=== PATIENT | female | born 1960 | race Caucasian/White ===

== ENCOUNTER 2022-08-15 19:11 | Observation (INO) | payer OTHER ==
[~2022-08-15] VITALS: Ht 162.6 cm; Wt 56.9 kg
[~2022-08-15 19:11] MED LIST: CYCL10 PO; Percocet 5-3251 EACH PO
[2022-08-15 21:06] LABS: BASOPHILS ABSOLUTE AUTO 0.04 K/mm3 (0.00-0.23); BASOPHILS PERCENT AUTO 1 % (0-2); EOSINOPHILS ABSOLUTE AUTO 0.04 K/mm3 (0.00-0.68); EOSINOPHILS PERCENT AUTO 1 % (0-6); Hematocrit 25.2 % (33.0-51.0); Hemoglobin 8.1 g/dL (11.5-16.0); IMMATURE GRAN ABSOLUTE AUTO 0.05 K/mm3 (0.00-0.10); IMMATURE GRAN PERCENT AUTO 1 % (0-1); LYMPHOCYTES ABSOLUTE AUTO 0.77 K/mm3 (0.84-5.20); LYMPHOCYTES PERCENT AUTO 10 % (21-46); MONOCYTES ABSOLUTE AUTO 0.65 K/mm3 (0.16-1.47); MONOCYTES PERCENT AUTO 8 % (4-13); Mean Corpuscular HGB 26.6 pg (26.0-34.0); Mean Corpuscular HGB Conc 32.1 g/dL (31.5-36.5); Mean Corpuscular Volume 83 fL (80-100); NEUTROPHILS ABSOLUTE AUTO 6.15 K/mm3 (1.96-9.15); NEUTROPHILS PERCENT AUTO 80 % (41-73); Platelet Count 479 K/mm3 (150-400); RDW Coefficient Variation 16.3 % (11.7-14.2); RDW Standard Deviation 49.6 fL (35.1-46.3); Red Blood Cell Count 3.04 M/mm3 (3.80-5.20)
[2022-08-15 21:19] LABS: Bun/Creatinine Ratio 27.5 (12.0-20.0); Calcium, Blood 9.1 mg/dL (8.5-10.1); Creatinine, Blood 0.66 mg/dL (0.40-1.00); Potassium, Blood 3.3 mmol/L (3.5-5.5)
[2022-08-15 22:06] LABS: Influenza A, PCR NEGATIVE (NEGATIVE); Influenza B, PCR NEGATIVE (NEGATIVE); Resp Syncytial Virus, PCR NEGATIVE (NEGATIVE); SARS-Cov-2 (COVID-19) PCR, MMC NEGATIVE (NEGATIVE)
[2022-08-16 01:23] LABS: Glucose, Body Fluid 60 mg/dL; Lactate Dehydrogenase, Body Fl 586 U/L; Protein, Body Fluid 3.9 g/dL
[2022-08-16 01:44] LABS: Automated BF RBC Count 0.013 M/mm3 (0-0); Automated BF WBC Count 0.101 K/mm3 (0-999)
[2022-08-16 01:45] LABS: Body Fluid WBC Count 101 /mm3 (0-999); RBC Count, Body Fluid 13000 /mm3 (0-0)
[2022-08-16 03:12] LABS: Percent Saturation 8.6 % (15.0-50.0)
--- NOTE | 2022-08-16 04:06 | NUR ---
ADMISSION: PATIENT IS RECIEVED FROM ER VIA STRETCHER. REPORTING R SIDE CHEST PAIN THAT INCREASES WITH COUGHING. TORADOL IS GIVEN WITH GOOD EFFECT. PATIENT IS ORIENTED TO THE ROOM AND CALL WRIGHT.
[2022-08-16 04:11] LABS: Total Cell Count, Body Fluid 100
[2022-08-16 04:12] LABS: Appearance, Body Fluid Cloudy (Clear); Color, Body Fluid Yellow (None-Yellow)
[2022-08-16 05:14] LABS: Hematocrit 27.6 % (33.0-51.0); Hemoglobin 8.5 g/dL (11.5-16.0); Mean Corpuscular HGB 26.1 pg (26.0-34.0); Mean Corpuscular HGB Conc 30.8 g/dL (31.5-36.5); Mean Corpuscular Volume 85 fL (80-100); Mean Platelet Volume 8.3 fL (9.1-12.4); Platelet Count 511 K/mm3 (150-400); RDW Coefficient Variation 16.4 % (11.7-14.2); RDW Standard Deviation 50.6 fL (35.1-46.3); Red Blood Cell Count 3.26 M/mm3 (3.80-5.20); White Blood Cell Count 6.91 K/mm3 (4.00-11.30)
[2022-08-16 05:38] LABS: Bun/Creatinine Ratio 28.4 (12.0-20.0); Calcium, Blood 8.9 mg/dL (8.5-10.1); Creatinine, Blood 0.6 mg/dL (0.40-1.00); Potassium, Blood 3.5 mmol/L (3.5-5.5)
--- NOTE | 2022-08-16 06:00 | NUR ---
SHIFT SUMMARY: PATIENT HAS A HALF OF SANDWICH AND PUDDING FOR SNACK AND TOLERATED IT WELL. TORADOL WAS GIVEN WITH GOOD EFFECT FOR PAIN. TELI IS IN PLACE, NSR IS OBSEERVED. PATIENT IS UP TO TH BATHROOM WITH A STEADY GAIT. PATIENT IS TEARFULL AND TIMES.
[2022-08-16 07:18] LABS: Total Protein, Blood 6.7 g/dL (6.4-8.2)
--- NOTE | 2022-08-16 14:28 | NUR ---
DR. BRADSHAW CONTACTED PT REQUESTING DR. BRADSHAW TO GO OVER CT SCAN RESULTS W/ HER. PLANS TO COME SEE PT THIS AFTERNOON.
--- NOTE | 2022-08-16 18:22 | NUR ---
SHIFT SUMMARY PT A&OX4, MOOD UP AND DOWN T/O SHIFT SINCE NEWS OF NEW SUSPECTED CANCER DX. PT STATES SHE IS "SCARED TO ." DR. BRADSHAW INTO SEE PT TO REVIEW IMAGES W/ PT THIS SHIFT. PT TOLERATING PO INTAKE WELL. CALL LIGHT W/IN REACH. PAIN MEDICATED PER EMAR. VSS. RA. PLAN FOR PAL CARE CONSULT. TELE IN PLACE.
--- NOTE | 2022-08-17 06:49 | NUR ---
SHIFT SUMMARY: PATIENT HAS PERIODS OF ANXIETY WHICH SEEMS TO INCREASE PAIN. PATIENT WAS OFFERED TYLENOL OR DILAUDID FOR PAIN AND REFUSED BOTH. "I DON'T LIKE TO TAKE A LOT OF MEDICATIONS". HEAT THERAPY WAS UTILIZED WITH GOOD EFFECT. THE PATIENT WAS ALSO ASSISTED WITH A SPONGE BATH AND AMBULATED IN THE DE SOUZA WITH A STEADY GAIT. AFTER BATH, SLEEP AND WALK PATIENT REPORTED FEELING MUCH BETTER.
[2022-08-17] MEDS ORDERED: Acetaminophen325 M1 PO (15:18)
[2022-08-17] MEDS ORDERED: AZIT500 PO (15:19)
[2022-08-17] MEDS ORDERED: CEFP200 PO (15:19)
[2022-08-17] MEDS ORDERED: IBUP400 PO (15:19)
[2022-08-17] MEDS ORDERED: VISBIOME 112.51 EACH PO (15:20)
[2022-08-17] MEDS ORDERED: ONDA4ODT MM (15:20)
[2022-08-17] MEDS ORDERED: LIDO700A20 TOP (15:21)
--- NOTE | 2022-08-17 17:24 | NUR ---
DISCHARGE SUMMARY: 1600: LATE ENTRY: PATIENT REPORTED CHEST WALL PAIN, ESPECIALLY WITH PENDING COUGH. PATIENT DISPLAYED SOME SHORTNESS OF BREATH AT REST AND WITH ACTIVITY. PATIENT DENIED NEED FOR OXYGEN OR SUPPORT MEASURES. PATIENT CONTINUES TO COUGH UP MODERATE AMOUNTS OF CLEAR, THICK SPUTUM. PATIENT STEADY ON HER FEET. PATIENT CALM AND COOPERATIVE. PATIENT VERY APPRECIATIVE OF CARE. PATIENT REPORTS PLANS TO FOLLOW THROUGH WITH RECOMMENDED APPOINTMENTS AND ACTIONS. DISCHARGE RX FAXED TO [facility] PER PATIENT REQUEST. DISCHARGE INSTRUCTIONS AND EDUCATION PROVIDED TO PATIENT. ALL QUESTIONS AND CONCERNS ADDRESSED. PATIENT DISCHARGED IN WHEELCHAIR WITH SUPERVISING ARCHITECT. PATIENT STABLE AT TIME OF DISCHARGE.
== END 2022-08-17 16:47 | disposition home or self-care (01) ==
LOC: ER 19:11 → MEDS 19:12
PROVIDERS: Family Medicine; Student in an Organized Health Care Education/Training Program; ADMIT Internal Medicine
DX: J90 Pleural effusion, not elsewhere classified (principal); J96.01 Acute respiratory failure with hypoxia; D63.1 Anemia in chronic kidney disease; E87.6 Hypokalemia; Z85.3 Personal history of malignant neoplasm of breast; C79.9 Secondary malignant neoplasm of unspecified site; C34.90 Malignant neoplasm of unspecified part of unspecified bronchus or lung
CPT/HCPCS: 0241U; 32555; 36415; 71046; 71250; 74177; 80048; 82728; 82945; 83540; 83550; 83615; 84145; 84155; 84157; 85025; 85027; 87070; 87205; 88108; 88305; 88341; 88342; 89051; 96365-59; 96375-59; 96376; 99285-25; A9270; G0378; J0696; J1885; J7050; Q9967

== ENCOUNTER 2022-08-18 09:14 | Inpatient (IN) | payer OTHER ==
[~2022-08-18] VITALS: Ht 162.6 cm; Wt 60.2 kg
[~2022-08-18 09:14] MED LIST changes: +AZIT500 PO; +Acetaminophen325 M1 PO; +CEFP200 PO; +IBUP400 PO; +LIDO700A20 TOP; +ONDA4ODT MM; +VISBIOME 112.51 EACH PO
[2022-08-18 10:12] LABS: Hematocrit 32.5 % (33.0-51.0); Hemoglobin 9.8 g/dL (11.5-16.0); Mean Corpuscular HGB 25.5 pg (26.0-34.0); Mean Corpuscular HGB Conc 30.2 g/dL (31.5-36.5); Mean Corpuscular Volume 85 fL (80-100); Mean Platelet Volume 8.3 fL (9.1-12.4); Platelet Count 624 K/mm3 (150-400); RDW Coefficient Variation 16.3 % (11.7-14.2); RDW Standard Deviation 50.4 fL (35.1-46.3); Red Blood Cell Count 3.84 M/mm3 (3.80-5.20); White Blood Cell Count 3.84 K/mm3 (4.00-11.30)
[2022-08-18 10:41] LABS: Albumin, Blood 3.3 g/dL (3.4-5.0); Albumin/Globulin Ratio 0.8 (0.8-1.8); Bilirubin, Total 0.6 mg/dL (0.1-1.0); Bun/Creatinine Ratio 30.8 (12.0-20.0); Creatinine, Blood 0.62 mg/dL (0.40-1.00); Globulin, Blood 3.9 g/dL (2.2-4.0); Potassium, Blood 3.5 mmol/L (3.5-5.5); Total Protein, Blood 7.2 g/dL (6.4-8.2)
[2022-08-18 10:43] LABS: BAND PERCENT MAN 44 % (0-8); BASOPHILS PERCENT MAN 0 % (0-2); EOSINOPHILS PERCENT MAN 0 % (0-6); LYMPHOCYTES ABSOLUTE MAN 0.11 K/mm3 (0.84-5.20); LYMPHOCYTES PERCENT MAN 3 % (21-46); METAMYELOCYTE ABSOLUTE MAN 0.03 K/mm3 (0.00-0.00); METAMYELOCYTE PERCENT MAN 1 % (0-0); MONOCYTES ABSOLUTE MAN 0.15 K/mm3 (0.16-1.47); MONOCYTES PERCENT MAN 4 % (4-13); NEUTROPHILS ABSOLUTE MAN 3.53 K/mm3 (1.96-9.15); SEG NEUTROPHILS PERCENT MAN 48 % (41-73); TOTAL CELLS COUNTED 100
[2022-08-18 12:46] LABS: Source, Urine Clean Catch
[2022-08-18 13:01] LABS: Appearance, Urine Clear (Clear); Bilirubin, Urine Neg (Neg); Blood, Urine Neg (Neg); Color, Urine Yellow (P-Yellow); Glucose Qualitative, Urine Neg (Neg); Ketones, Urine Neg (Neg); Leukocyte Esterase, Urine 1+ (Neg); Nitrite, Urine Neg (Neg); Protein, Urine 2+ (Neg); Specific Gravity, Urine 1.015 (1.003-1.022); Urobilinogen, Urine NORM (Normal)
[2022-08-18 13:20] LABS: Bacteria Rare /hpf; Mucus Mod (0-Heavy); Renal Epithelial Rare /hpf (0-Rare); Squamous Epithelial Cells Mod /hpf (Few)
--- NOTE | 2022-08-18 13:30 | NUR ---
ED Palliative Care Consult Spoke with Dr Espana and Hospitalist Ivan. Discussed case and concerns. Pt to the ED with possible perforation of bowel or stomach. Pt also has metastatic cancer. Pt may benefit from goals of care discussion. Pt resting on gurney upon arrival. Pt in significant pain and ED RN Jeannie offers IV pain medication. Pt reports medication is beneficial. Pt A&OX4. Engaged in therapeutic discussion regarding goals of care. Pt reports living out [facility] with no family local. Pt reports her dad moved to live with her sister out of state. Pt reports being unemployed since COVID 19 pandemic. 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 Discussed potential options for care including surgery or considering comfort care and hospice. Pt reports being scheduled at the [facility] today before this incident but was unable to make it. She reports having received chemo therapy in the past and was finished with treatment. She reports being unsure if she wants to pursue treatment for her cancer as of yet. She reports feeling overwhelmed and needs time to consider her goals. Pt expresses appreciation and reports no other concerns at this time. Spoke with ED RN Nichelle Phelps and discussed case. Palliative Care will remain available for therapeutic and supportive visits.
--- NOTE | 2022-08-18 14:27 | NUR ---
History, Chart, Medications and Allergies reviewed before start of procedure.Pre-Op teaching done. Pt verbalizes understanding. Pre-Op teaching done. Pt verbalizes understanding.
--- NOTE | 2022-08-18 16:49 | NUR ---
08/18/22 1649 Chun Tai 3.375 ZOSYN GIVEN BY ANESTHESIA AT 1604
--- NOTE | 2022-08-18 19:00 | NUR ---
ASSUMED CARE/ARRIVAL TO ICU PT ARRIVED FROM OR. PT A/O X 4. LUNGS SOUNDS DIM IN BASES. REPORTS ITS PAINFUL TO COUGH AND DEEP BREATHING. ON 5L NC W/ SATS GREATER THAN 92%. SINUS TACH 110'S. HYPOACTIVE BT. ABD TENDER, REPORTS 9/10 PAIN. KASSANDRA DRAIN W/ SMALL AMOUNTS OF DRAINAGE ON DRSG. RIMMA DRAIN TO L ABD. SEROSANGUINEOUS DRAINAGE. RECINOS IN PLACE, DRAINING TO GRAVITY.
--- NOTE | 2022-08-18 20:50 | NUR ---
UNCONTROLLED PAIN PATIENT C/O CONSISTENT WIDESPREAD PAIN NOT RELEIVED BY FENTANYL 50MCG Q1H. CALL MADE TO DR. CANO AND ORDERS RECEIVED FOR DILAUDID 1-2MG IV Q6H PRN. DILAUDID 2MG IV GIVEN TO PATIENT WITH PATIENT REPORTING DECREASE IN PAIN.
[2022-08-19 02:01] LABS: Source, Urine Foley catheter
[2022-08-19 02:25] LABS: Bilirubin, Urine Neg (Neg); Blood, Urine 4+ (Neg); Glucose Qualitative, Urine Neg (Neg); Ketones, Urine 1+ (Neg); Leukocyte Esterase, Urine 1+ (Neg); Nitrite, Urine Neg (Neg); Protein, Urine 2+ (Neg); Urobilinogen, Urine NORM (Normal)
[2022-08-19 02:27] LABS: Appearance, Urine Clear (Clear); Color, Urine Yellow (P-Yellow)
[2022-08-19 02:28] LABS: Bacteria Rare /hpf; Squamous Epithelial Cells Not Seen /hpf (Few); Uric Acid Crystals Mod /hpf
[2022-08-19 03:43] LABS: Hematocrit 25.8 % (33.0-51.0); Mean Corpuscular HGB 26.4 pg (26.0-34.0); Mean Corpuscular Volume 85 fL (80-100); Mean Platelet Volume 8.1 fL (9.1-12.4); Platelet Count 433 K/mm3 (150-400); RDW Coefficient Variation 16.9 % (11.7-14.2); RDW Standard Deviation 52.7 fL (35.1-46.3); Red Blood Cell Count 3.03 M/mm3 (3.80-5.20); White Blood Cell Count 10.75 K/mm3 (4.00-11.30)
[2022-08-19 04:03] LABS: Albumin, Blood 2.3 g/dL (3.4-5.0); Albumin/Globulin Ratio 0.7 (0.8-1.8); Bilirubin, Total 0.4 mg/dL (0.1-1.0); Bun/Creatinine Ratio 26.4 (12.0-20.0); Calcium, Blood 8.2 mg/dL (8.5-10.1); Creatinine, Blood 0.72 mg/dL (0.40-1.00); Globulin, Blood 3.2 g/dL (2.2-4.0); Magnesium, Blood 1.9 mg/dL (1.6-2.4); Potassium, Blood 4.3 mmol/L (3.5-5.5); Total Protein, Blood 5.5 g/dL (6.4-8.2)
[2022-08-19 04:04] LABS: BAND PERCENT MAN 26 % (0-8); BASOPHILS PERCENT MAN 0 % (0-2); EOSINOPHILS PERCENT MAN 0 % (0-6); LYMPHOCYTES ABSOLUTE MAN 0.32 K/mm3 (0.84-5.20); LYMPHOCYTES PERCENT MAN 3 % (21-46); METAMYELOCYTE ABSOLUTE MAN 0.21 K/mm3 (0.00-0.00); METAMYELOCYTE PERCENT MAN 2 % (0-0); MONOCYTES ABSOLUTE MAN 0.75 K/mm3 (0.16-1.47); MONOCYTES PERCENT MAN 7 % (4-13); NEUTROPHILS ABSOLUTE MAN 9.46 K/mm3 (1.96-9.15); SEG NEUTROPHILS PERCENT MAN 62 % (41-73); TOTAL CELLS COUNTED 100
--- NOTE | 2022-08-19 05:52 | NUR ---
SHIFT SUMMARY PT REQUIRED FREQUENT PAIN MEDICATION. REPORTS GOOD PAIN CONTROL W/ ADDED DILAUDID. SEE EMAR. LR INFUSING. VSS. RIMMA DRAIN, AND KASSANDRA DRAIN TO ABD W/ NO INCREASED BLEEDING. RECINOS PATENT AND DRAINING TO GRAVITY. PG PLACED THIS SHIFT TO BHUMI.
--- NOTE | 2022-08-19 08:55 | NUR ---
Assumed care of pt at 0700. Report recevied from Caren CERVANTES and Gabriela RN. Pt alert. Reports pain and requests medication. Dilaudid given. Pt able to assist with reposition. Pt on 3 LPM NC. SpO2 90% or greater. SR per monitor. BP stable. Dr Triplett in to see patient. Provider states pt is okay for surgical floor status.
--- NOTE | 2022-08-19 16:16 | NUR ---
Pt resting in bed and reporting 8/10 pain. Offered supportive visit and validated concerns. Pt anxious and painful having difficulty focusing on conversation. Ended visit to allow Pt to rest. Reported Pt's pain to covering RN. Spoke with Dr Triplett and discussed case. Plan to start Pt on MACHINED PARTS METAL SPRAYER pump. Palliative Care will remain available for supportive visits and symptom management.
--- NOTE | 2022-08-19 16:52 | NUR ---
SUMMARY Pt is surgical floor status with telemetry Neuro: A&O x 4. Answers questions, follows commands, verbalizes needs. Pleasant and cooperative with care. Difficulty with pain control. Pt started on fentanyl AMUSEMENT PARK ENTERTAINER pump. Musculoskeletal: Pt able to help with repositioning. Weak, but able to perform ADLs independently while in bed. Cardiac: SR - ST per monitor, rate 95-105. BP stable. No edema. Capillary refill <3 seconds BUE and BLE. Respiratory: SpO2 90% or greater with 2 LPM NC. Clear lung sounds YAIR, all other lobes diminished. Pt self-suctioning sputum. Pt educated on flutter valve and incentive spirometer. Pt consistenly uses these items correctly and independently. GI: NGT to LIS with drainage in tubing but not in suction canister. Normal BT. : Renee catheter in place, draining solitario urine Skin: Unchanged from initial assessment. 70 mL output this shift from RIMMA. Psychosocial: Pt updating family and friends. Pleasant and cooperative with care.
--- NOTE | 2022-08-19 17:20 | NUR ---
Transferred to room 217 accompanied by MARGARITO Shah. Chart, medications, belongings transferred with patient. Care transferred to Gale CERVANTES.
--- NOTE | 2022-08-20 04:27 | NUR ---
SHIFT SUMMARY POD 2. AOX4. VSS. OCCASIONALLY SPO2 DROPS BRIEFLY TO 88-89% ON 2L O2, HOWEVER PT RECOVERS QUICKLY TO 92-94% ON 2L. REPORTS DYSPNEA, DOESNT WEAR O2 AT BASELINE. BREATH SOUNDS DIM IN BASES. PT VERY ANXIOUS ABOUT BREATHING & OVERALL HEALTH CONDITION, DENIES NEED FOR MEDICATION TO ASSIST c ANXIETY. USED THERAPEUTIC LISTENING & MUSIC THERAPY. REPORTS CONSTANT 8-9/10 ALLOVER ABD PAIN, FACILITY MAINTENANCE MECHANIC PUMP IN USE & PT USING PRN, ALSO MEDICATED 2X c 0.5MG IV DILAUDID FOR BREAKTHROUGH PAIN. MIDLINE ABD PICCO DRESSING C/D/I. ABD TENDER TO PALPATION, DENIES N/V. NPO. NG TUBE R NARES, SM AMOUNT GREEN/BROWN DRAINAGE c SOME DARK BROWN/RED SEDIMENT SEEN IN TUBE-CHAARGE HELEN Higgins IRRIGATED NG TUBE & APPEARS TO BE FLOWING MORE FREELY NOW. RIMMA DRAIN TO LLQ ABD, 40ML SEROSANGUINOUS DRAINAGE TOTAL THIS SHIFT. RECINOS PATENT & DRAINING YELLOW URINE c SM AMOUNT SEDIMENT. CALL LIGHT IN REACH. WILL MONITOR UNTIL DAY NURSE ASSUMES CARE.
--- NOTE | 2022-08-20 17:12 | NUR ---
SHIFT SUMMARY POD2 EX LAP c HERMINIA PATCH, A/O X4, VSS, PT IS MODERATELY ANXIOUS R/T CURRENT CONDITION AND IS ABLE TO DO FOCUSED BREATHING TO HELP CALM HERSELF. DIE TRIMMER ADJUSTED WITH MODERATE IMPROVEMENT TO PAIN MANAGEMENT, PT REMAINS NPO T/O THE SHIFT. CALL LIGHT IN REACH, WILL CTM AND REPORT TO ONCOMING NOC RN.
--- NOTE | 2022-08-21 06:10 | NUR ---
SHIFT SUMMARY NO ACUTE CHANGES THIS SHIFT. AOX4. VSS. REPORTS OCC DYSPNEA, SPO2 >90% ON 2L O2. LESS ANXIOUS THEN PREVIOUS NIGHT. STATES PAIN IS GETTING BETER, HAS CONTINUOUS FENTANYL DIGITAL COMPUTER OPERATOR ALONG c BOLUS & MEDICATED 2X c IV TORADOL. MIDLINE ABD PICCO DRESSING C/D/I. LLQ RIMMA DRAIN HAD 160ML SEROUS OUTPUT. NG TUBE HAD 150ML TOTAL IN CANISTER. CALL LIGHT IN REACH & PT ABLE TO MAKE NEEDS KNOWN. WILL MONITOR.
--- NOTE | 2022-08-21 19:22 | NUR ---
SHIFT SUMMARY POD3 EX LAP c HERMINIA PATCH, A/OX4, VSS, TOLERATING CLEARS AFTER NG TUBE REMOVED AT 1400, RIMMA DRAIN CONTINUES TO DRAIN SMALL AMT OF MOSTLY SEROUS FLUID, PAIN MANAGED BY PARIMUTUEL TICKET CHECKER, DOES WELL WITH STAND/PIVOT TRANSFERS TO BSC AND . NO ACUTE EVENTS THIS SHIFT, CALL LIGHT IN REACH, REPORT GIVEN TO KATHLEEN CERVANTES.
--- NOTE | 2022-08-22 07:38 | NUR ---
SHIFT SUMMARY AOX4. VSS. REPORTS CONSTANT PAIN T/O ABD, BEING MEDICATED VIA RV SERVICE TECHNICIAN PUMP & c PRN TORADOL. RIMMA c MOD AMOUNT YELLOW SEROUS DRAINAGE. CHANGED TO CLEAR LIQUID DIET, TOLERATING W/O N/V. HAD 2 BM THIS SHIFT, REPORTS BELCHING. ACTIVE BT. PT CONCERNED THIS AM ABOUT "SWELLING IN ANKLES" +1 EDEMA, STATES THIS IS NEW FOR HER, PASSED INFO TO ONCOMING NURSE. PT ANXIOUS & HAVING TROUBLE COPING c DX STATES "I'M NOT A SICK PERSON, I WAS CANCER FREE IN MARCH, MY BODY HAS FAILED ME.". CALL LIGHT IN REACH & PT ABLE TO MAKE NEEDS KNOWN.
[2022-08-22 11:52] LABS: BASOPHILS ABSOLUTE AUTO 0.04 K/mm3 (0.00-0.23); BASOPHILS PERCENT AUTO 1 % (0-2); EOSINOPHILS ABSOLUTE AUTO 0.14 K/mm3 (0.00-0.68); EOSINOPHILS PERCENT AUTO 2 % (0-6); Hematocrit 25.8 % (33.0-51.0); Hemoglobin 8.2 g/dL (11.5-16.0); IMMATURE GRAN PERCENT AUTO 1 % (0-1); LYMPHOCYTES ABSOLUTE AUTO 0.67 K/mm3 (0.84-5.20); LYMPHOCYTES PERCENT AUTO 9 % (21-46); MONOCYTES ABSOLUTE AUTO 0.61 K/mm3 (0.16-1.47); MONOCYTES PERCENT AUTO 8 % (4-13); Mean Corpuscular HGB 26.4 pg (26.0-34.0); Mean Corpuscular HGB Conc 31.8 g/dL (31.5-36.5); Mean Corpuscular Volume 83 fL (80-100); Mean Platelet Volume 8.3 fL (9.1-12.4); NEUTROPHILS ABSOLUTE AUTO 6.33 K/mm3 (1.96-9.15); NEUTROPHILS PERCENT AUTO 80 % (41-73); Platelet Count 516 K/mm3 (150-400); RDW Coefficient Variation 16.6 % (11.7-14.2); RDW Standard Deviation 50.6 fL (35.1-46.3); Red Blood Cell Count 3.11 M/mm3 (3.80-5.20); White Blood Cell Count 7.89 K/mm3 (4.00-11.30)
[2022-08-22 12:14] LABS: Albumin, Blood 2.1 g/dL (3.4-5.0); Albumin/Globulin Ratio 0.6 (0.8-1.8); Bilirubin, Total 0.4 mg/dL (0.1-1.0); Bun/Creatinine Ratio 31.5 (12.0-20.0); Calcium, Blood 8.4 mg/dL (8.5-10.1); Creatinine, Blood 0.51 mg/dL (0.40-1.00); Globulin, Blood 3.6 g/dL (2.2-4.0); Potassium, Blood 3.1 mmol/L (3.5-5.5); Total Protein, Blood 5.7 g/dL (6.4-8.2)
--- NOTE | 2022-08-22 19:53 | NUR ---
SHIFT SUMMARY PAIN CONTINUES TO BE MANAGED WITH FENTANYL APPRENTICE PHOTOGRAPHER AND TORADOL. PT HAS BEEN INDEPENDENT TO THE BSC T/O THE SHIFT. DR. OSMAN AND DR. FRANK NOTIFIED OF THE INTENSIVISTS RECOMMENDATION FOR A CHEST TUBE. DR. FRANK STATED SHE WOULD DISCUSS PLACEMENT WITH RADIOLOGY TOMORROW AFTER DR. MALONE SEES THE PT, PER DR. FRANK PLACEMENT IS NON-URGENT. PT REPORT FEELING SOB BUT O2 SATURATIONS REMAIN >95% ON 1L O2. REPORT GIVEN TO KATHLEEN CERVANTES.
[2022-08-23 04:59] LABS: BASOPHILS ABSOLUTE AUTO 0.03 K/mm3 (0.00-0.23); BASOPHILS PERCENT AUTO 0 % (0-2); EOSINOPHILS ABSOLUTE AUTO 0.19 K/mm3 (0.00-0.68); EOSINOPHILS PERCENT AUTO 3 % (0-6); Hematocrit 28.8 % (33.0-51.0); Hemoglobin 8.6 g/dL (11.5-16.0); IMMATURE GRAN ABSOLUTE AUTO 0.17 K/mm3 (0.00-0.10); IMMATURE GRAN PERCENT AUTO 2 % (0-1); LYMPHOCYTES ABSOLUTE AUTO 0.76 K/mm3 (0.84-5.20); LYMPHOCYTES PERCENT AUTO 10 % (21-46); MONOCYTES ABSOLUTE AUTO 0.69 K/mm3 (0.16-1.47); MONOCYTES PERCENT AUTO 9 % (4-13); Mean Corpuscular HGB 24.8 pg (26.0-34.0); Mean Corpuscular HGB Conc 29.9 g/dL (31.5-36.5); Mean Corpuscular Volume 83 fL (80-100); Mean Platelet Volume 8.5 fL (9.1-12.4); NEUTROPHILS ABSOLUTE AUTO 5.48 K/mm3 (1.96-9.15); NEUTROPHILS PERCENT AUTO 75 % (41-73); Platelet Count 519 K/mm3 (150-400); RDW Coefficient Variation 16.6 % (11.7-14.2); RDW Standard Deviation 50.4 fL (35.1-46.3); Red Blood Cell Count 3.47 M/mm3 (3.80-5.20); White Blood Cell Count 7.32 K/mm3 (4.00-11.30)
[2022-08-23 05:15] LABS: Albumin, Blood 2.1 g/dL (3.4-5.0); Anion Gap 6 mmol/L (6-16); Blood Urea Nitrogen 13 mg/dL (8-24); Bun/Creatinine Ratio 23.3 (12.0-20.0); CO2, Blood 32 mmol/L (21-32); Calcium, Blood 8.6 mg/dL (8.5-10.1); Chloride, Blood 104 mmol/L (98-108); Creatinine, Blood 0.56 mg/dL (0.40-1.00); Glomerular Filtration Rate 105 (60-); Glucose, Blood 116 mg/dL (70-99); Magnesium, Blood 2.1 mg/dL (1.6-2.4); Potassium, Blood 3.5 mmol/L (3.5-5.5); Sodium, Blood 142 mmol/L (136-145)
--- NOTE | 2022-08-23 07:42 | NUR ---
POD 5 S/P EX LAP+HERMINIA PATCH. PT VSS T/O NIGHT. SATS >90% ON RA, PT IS WEARING 1LO2 NC FOR COMFORT. PT REP SHE FEELS MORE SOB THIS AM. PT HAS WEAK NON PROD COUGH. SEAL AND SX INTACT ON KASSANDRA DRESSING. PT DENIED N/V, REP +FLATUS. PAIN MGD W/CRADLE SLIDE MAKER AND TORADOL. PT UP INDEP TO BSC. AWAITING ONCOLOGY CONSULT AND POSS CT PLACEMENT.
[2022-08-23 12:32] LABS: Performing Lab SYMBIODX; Test Name HER2 FISH
--- NOTE | 2022-08-23 14:21 | NUR ---
Spiritual Care Visit Dr. Mendenhall Received request from an oncology physician to visit Pt. Pt. had just made the decision to do Chemo therapy. Pt. is quietly unsettled because her family support base is occupied caring for other family groing through trauma. Pt. verbalized that she had a visit from someone form her [facility] in [place]. Pt. displayed increasing trust and became cathartic as she shared her family story. With a calm presence and theraputic listening Pt. welcomed pastoral prayer. Prayed with Pt. Pt. verbalized gratitude for the spiritual care visit. Before this ammonium nitrate crystallizer left, a came to clarify Pts. choices.
--- NOTE | 2022-08-23 14:35 | NUR ---
Spoke with RN Nichelle Wesley and discussed case earlier today. Pt resting in bed upon arrival. Offered supportive visit as Pt reports making a decision regarding treatment choices. She reports plan to start treatment in the hospital. Continued active listening. Encourage Pt to consider establiching a support system as this may be beneficial as she goes through treatment. Continued supportive visit. Pt expresses appreciation and reports no other concerns at this time. Palliative Care will remain available.
--- NOTE | 2022-08-23 14:40 | NUR ---
PT REPORTS THAT SHE HAS MADE A DECISION REGARDING TREATMENT. SHE ALSO STATES THAT SHE CALLED DR. TALLEY TO NOTIFY HIM OF HER DECISION. DR. TALLEY'S OFFICE CONTACTED TO CLARIFY THAT PT'S MESSAGE HAD BEEN RECEIVED, OFFICE STAFF CONFIRMED.
--- NOTE | 2022-08-23 14:42 | NUR ---
PT HAS HAD MULTIPLE VISITORS TODAY. THE ELDER'S FROM HER [place] VISITED. PT WAS ALSO SEEN BY HOSPITAL PASTORAL CARE AND PALLIATIVE CARE FOR SUPPORT. WILL CONTINUE TO MONITOR.
--- NOTE | 2022-08-23 17:11 | NUR ---
SHIFT SUMMARY PT HAS BEEN INDEPENDENT IN HER ROOM TODAY. SHE HAS TRANSITIONED FROM COMBINATION WELDER APPRENTICE TO ORAL PAIN MEDICATION. DR. TALLEY ROUNDED ON PT AND DISCUSSED CA TREATMENT OPTIONS. PLAN FOR CHEMO TREATMENT TO START TOMORROW. PT ADVANCED TO A REGULAR DIET. WILL MONITOR UNTIL REPORT TO KATHLEEN CERVANTES.
[2022-08-24 04:29] LABS: BASOPHILS ABSOLUTE AUTO 0.04 K/mm3 (0.00-0.23); BASOPHILS PERCENT AUTO 1 % (0-2); EOSINOPHILS ABSOLUTE AUTO 0.15 K/mm3 (0.00-0.68); EOSINOPHILS PERCENT AUTO 2 % (0-6); Hematocrit 24.8 % (33.0-51.0); Hemoglobin 7.6 g/dL (11.5-16.0); IMMATURE GRAN ABSOLUTE AUTO 0.15 K/mm3 (0.00-0.10); IMMATURE GRAN PERCENT AUTO 2 % (0-1); LYMPHOCYTES ABSOLUTE AUTO 0.82 K/mm3 (0.84-5.20); LYMPHOCYTES PERCENT AUTO 12 % (21-46); MONOCYTES ABSOLUTE AUTO 0.59 K/mm3 (0.16-1.47); MONOCYTES PERCENT AUTO 9 % (4-13); Mean Corpuscular HGB 25.2 pg (26.0-34.0); Mean Corpuscular HGB Conc 30.6 g/dL (31.5-36.5); Mean Corpuscular Volume 82 fL (80-100); Mean Platelet Volume 8.4 fL (9.1-12.4); NEUTROPHILS ABSOLUTE AUTO 5.22 K/mm3 (1.96-9.15); NEUTROPHILS PERCENT AUTO 75 % (41-73); Platelet Count 459 K/mm3 (150-400); RDW Coefficient Variation 16.8 % (11.7-14.2); RDW Standard Deviation 50.4 fL (35.1-46.3); Red Blood Cell Count 3.02 M/mm3 (3.80-5.20); White Blood Cell Count 6.97 K/mm3 (4.00-11.30)
[2022-08-24 04:45] LABS: Anion Gap 8 mmol/L (6-16); Blood Urea Nitrogen 12 mg/dL (8-24); CO2, Blood 32 mmol/L (21-32); Calcium, Blood 8.2 mg/dL (8.5-10.1); Chloride, Blood 100 mmol/L (98-108); Glomerular Filtration Rate 103 (60-); Glucose, Blood 114 mg/dL (70-99); Phosphorus, Blood 3.2 mg/dL (2.5-4.9); Potassium, Blood 3.4 mmol/L (3.5-5.5); Sodium, Blood 140 mmol/L (136-145)
--- NOTE | 2022-08-24 05:34 | NUR ---
SHIFT SUMMARY PATIENT ALERT AND ORIENTED. SHE IS VERY TIMID AND SOFT SPOKEN. MEDICATED PER EMAR FOR PAIN. SHE HAS TROUBLE ARTICULATING AND PROCESSING HOW SHE IS PHYSICALLY FEELING. NO ACUTE ISSUES NOTED OVERNIGHT. CALL LIGHT WITHIN REACH. REPORT GIVEN TO ONCOMING RN.
--- NOTE | 2022-08-24 11:22 | NUR ---
RN NOTE MS WHITMORE IS GETTING HER 1ST DOSE OF TAXOL TODAY, PRE MEDS GIVEN. SHE SAID THAT SHE IS READY TO START CHEMO. SHE IS GENERALLY SAD/ANXIOUS, ABLE TO VERBALISE HER FEELINGS. SHE SPOKE TO THE TIBURCIO YESTERDAY AND SAID THAT WAS HELPFUL AND THERAPY DOG VISITED HER THIS MORNING. ABDOMEN WITH ORIGINAL SURGICAL DRESSING IN PLACE. KASSANDRA WITH FLASHING GREEN LIGHT, RIMMA DRAIN WITH S/S DRAINAGE, 70CC EMPTIED THIS AM. NON PITTING EDEMA BLE. UP FREQUENTLY TO BSC FOR LIQUID STOOLS AND URINATION. STEADY INDEPENDENT TRANSFER. SR ON TELE, NO CALLS FROM TT. BED LOW, CALL LIGHT IN REACH.
--- NOTE | 2022-08-24 12:03 | NUR ---
CHEMO ADMINISTRATION: PATIENT EDUCATION PROVIDED ON MEDICATION TO BE ADMINISTERED. PATIENT DENIES QUESTIONS AT THIS TIME, DR. TALLEY EXPLAINED AND ANSWERED QUESTIONS TO PATIENT SATISFACTION. PICC LINE TO RUE PATENT AND INFUSING WITHOUT DIFFICULTY. TAXOL STARTED PER RX WITH CHEMO PRECAUTIONS USED. PATIENT EDUCATED TO CALL FOR ANY ABNORMAL SYMPTOMS. PREMEDICATION HAS BEEN ADMINISTERED. MAX RN VERIFIED CHEMO MEDICATION, DOSAGE, ADMINISTRATION, AND RATE. BEDSIDE RN, RHONDA NOTIFIED OF SYMPTOMS TO WATCH FOR. IV LINE LABELED WITH CHEMO STICKER AND HUB TAPED FOR SECURITY.
--- NOTE | 2022-08-24 12:26 | NUR ---
Spiritual Care Visit. Pt. is awake in bed and welcomes my visit. Pt. is pleasant. Rapport is re-established. Pt. displays evidence of engagement and trust. Facilitate a life review and uncover spiritual distress related family unit complications and past personal trauma. With a calming presence and theraputic listening Pt. diplays evidence of increased value and peace. 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 When lunch was served I prayed with the Pt. Pt. verbalized and expressed non-verbally her gratitude for the spiritual care that she has received, and welcomes a return visit.
--- NOTE | 2022-08-24 17:23 | NUR ---
SHIFT CATRACHO SEE PRIOR RN NOTE PT TOLERATED 1ST DOSE OF CHEMO TODAY. HAS BEEN UP MULTIPLE TIMES UP TO BSC FOR LOOSE LIQUID STOOL. SMALL VOLUMES BUT FREQUENT. C/O ABDOMINAL PAIN, GIVEN TORODOL AND NORCO TO CONTROL PAIN. SHE SAID HER BREATHING HAS BEEN FEELING OK ON 2L NC. KASSANDRA WITH GREEN FLASHING LIGHT, RIMMA TO BULB SXN. ABDOMINAL DRESSING LEFT UNDISTURBED WITH SMALL OLD BLOOD STAIN ONLY. BLE NON PITTING EDEMA. UNABLE TO MEASURE ACCURATE UOP MIXED IN WITH STOOLS. BED LOW, CALL LIGHT IN REACH.
--- NOTE | 2022-08-25 04:40 | NUR ---
SHIFT SUMMARY PT A&O X 4- PT HAD 1ST CHEMO TX 08/24- PT REPORTED INCREASED DIARRHEA DURING TX- MEDICATED MULTIPLE TIMES FOR ABDOMEN PAIN- KASSANDRA TO MIDLINE INCISION- RIMMA DRAIN LEFT QUAD- PT UP TO BSC INDEPENDENTLY- CURRENTLY ON 1L- PT USING IS T/O NIGHT -NSR ON TELE
[2022-08-25 05:50] LABS: BASOPHILS ABSOLUTE AUTO 0.01 K/mm3 (0.00-0.23); BASOPHILS PERCENT AUTO 0 % (0-2); EOSINOPHILS ABSOLUTE AUTO 0.03 K/mm3 (0.00-0.68); EOSINOPHILS PERCENT AUTO 0 % (0-6); Hematocrit 23.1 % (33.0-51.0); Hemoglobin 7.3 g/dL (11.5-16.0); IMMATURE GRAN ABSOLUTE AUTO 0.17 K/mm3 (0.00-0.10); IMMATURE GRAN PERCENT AUTO 2 % (0-1); LYMPHOCYTES ABSOLUTE AUTO 0.74 K/mm3 (0.84-5.20); LYMPHOCYTES PERCENT AUTO 11 % (21-46); MONOCYTES ABSOLUTE AUTO 0.37 K/mm3 (0.16-1.47); MONOCYTES PERCENT AUTO 5 % (4-13); Mean Corpuscular HGB 25.8 pg (26.0-34.0); Mean Corpuscular HGB Conc 31.6 g/dL (31.5-36.5); Mean Corpuscular Volume 82 fL (80-100); Mean Platelet Volume 8.7 fL (9.1-12.4); NEUTROPHILS PERCENT AUTO 81 % (41-73); Platelet Count 459 K/mm3 (150-400); RDW Coefficient Variation 16.8 % (11.7-14.2); RDW Standard Deviation 50.3 fL (35.1-46.3); Red Blood Cell Count 2.83 M/mm3 (3.80-5.20); White Blood Cell Count 7.02 K/mm3 (4.00-11.30)
[2022-08-25 06:14] LABS: Albumin, Blood 2.1 g/dL (3.4-5.0); Albumin/Globulin Ratio 0.6 (0.8-1.8); Bilirubin, Total 0.1 mg/dL (0.1-1.0); Bun/Creatinine Ratio 19.6 (12.0-20.0); Calcium, Blood 8.3 mg/dL (8.5-10.1); Creatinine, Blood 0.66 mg/dL (0.40-1.00); Globulin, Blood 3.3 g/dL (2.2-4.0); Magnesium, Blood 1.8 mg/dL (1.6-2.4); Phosphorus, Blood 2.7 mg/dL (2.5-4.9); Potassium, Blood 3.6 mmol/L (3.5-5.5); Total Protein, Blood 5.4 g/dL (6.4-8.2)
--- NOTE | 2022-08-25 17:21 | NUR ---
SHIFT SUMMARY PATIENT MEDICATED X3 FOR PAIN, PATIENT DENIES NAUSEA AND SHORTNESS OF BREATH. PATIENT IS IND TO THE BSC. PATIENT WORKED WITH PT TODAY, AMBULATED IN HALLWAY. RECOMMENDING SNF. PATIENT HAS RIMMA DRAIN IN PLACE, 60MLS OUTPUT. PATIENT HAD MIDLINE ABD INCISION WITH KASSANDRA DRESSING. PATIENT HAS POWERGLIDE TO BHUMI RUNNING TKO. PATIENT IS TOLERATING FOOD WELL. PATIENT HAD CHEMO YESTERDAY. PATIENT IS VERY PLEASANT AND COOPERATIVE WITH CARE.
--- NOTE | 2022-08-26 06:26 | NUR ---
SHIFT SUMMARY CHANGED BANDAGE TO RIMMA DRAIN DUE TO LEAKING- PT TOLERATED WELL - MEDICATED MULTIPLE TIMES FOR ABDOMEN PAIN- PT USING THE INCENTIVE LILIANA MULTIPLE TIMES THROUGH OUT THE NIGHT- PT REPORTS BREATHING IS EASIER - PT COMPLAINED THAT SHE IS COUGHING UP MACEDO SPUTUM
--- NOTE | 2022-08-26 10:33 | NUR ---
UPDATE DR. OSMAN AT BEDSIDE. REMOVED RIMMA DRAIN AND PUT DRESSING OVER IT. REMOVED KASSANDRA DRESSING OVER MIDLINE INSICION, OPEN TO AIR. SEEMA INTACT. PATIENT TOLERATED WELL.
--- NOTE | 2022-08-26 17:53 | NUR ---
SHIFT SUMMARY PATIENT MEDICATED X3 FOR PAIN, DENIES NAUSEA AND SHORTNESS OF BREATH AT REST. PATIENT DOES REPORT SOME SHORTNESS OF BREATH WITH ACTIVITY. PATIENT TRIALED ON ROOM AIR AT REST, PATIENT MAINTAINED SATS ABOVE 94% ON ROOM AIR. PATIENT WALKED IN HALLWAY TODAY WITH ASSISTANCE, SATS DID DROP TO 86% DURING THAT. DR. OSMAN REMOVED RIMMA DRAIN AND KASSANDRA DRESSING TO MIDLINE INSICION. SEEMA STILL INTACT. PATIENT TOLERATED WELL. PATIENT IS EATING AND DRINKING WELL. CARE MANAGEMENT MET WITH PATIENT, SEE NOTES. PATIENT IS PLEASANT AND COOPERATIVE WITH CARE.
--- NOTE | 2022-08-26 18:32 | NUR ---
Spiritual Care Visit. Pt. is awake in bed and welcomes my visit. Pt. is pleasant as she is tolerating day three of chemotherapy. Pt. is unsettled by the uncertainty of her future care management. Through theraputic listening am able to give encouragement and pastoral care. Pt. displays evidence of engagement and awareness of the health joy she is fighting. Prayed with Pt. Pt. verbalized gratitude for the spiritual care visit.
--- NOTE | 2022-08-27 04:02 | NUR ---
TIN WORKER SUMMARY: A&Ox4. PLEASANT AND COOPERATIVE WITH CARE. VSS. INDEPENDENT WITHIN ROOM FOR AMBULATION AND TRANSFERS WITH FWW. PRN NORCO x2 GIVEN ROUTINELY Q4H PER PT REQUEST. PRN IV HYDROMORPHONE ADMINISTERED ONCE FOR PAIN >10. HAS REQUESTED TO BE OFFERED NORCO x2 Q4H TO STAY AHEAD OF PAIN. NO ACUTE OVERNIGHT EVENTS. AWAITING PLACEMENT DECISION FOR LTC. WILL REPORT TO ONCOMING RN.
--- NOTE | 2022-08-27 17:10 | NUR ---
SHIFT SUMMARY- PT VSS. APPETITE OK. C/O PAIN Q4 HR, TREATED PER EMAR. R HAND IV INFILTERATION, POWERGLIDE IN PLACE. DIARRHEA X3-4. EDEMA PITTING 2+. CALL LIGHT IN REACH.
--- NOTE | 2022-08-28 04:42 | NUR ---
SHIFT MOSTLY UNREMARKABLE. NARCO PAIN MEDICATION GIVEN Q4 ROUTINELY, STILL CLIENT REPORTS PAIN STABLE 5-8/10. GAVE DILAUDID AFTER MOST RECENT NARCO ADMINISTRATION WHICH HELPED MANAGE PAIN. PATIENT HAS BEEN SLEEPING SINCE. AOX4. INCISION CLEAN WITH NO REDNESS, DRAINAGE, OR IRRITATION. PATIENT DENIES PAIN AT INCISION SITE. CALL LIGHT LEFT WITHIN REACH.
[2022-08-28 04:48] LABS: BASOPHILS ABSOLUTE AUTO 0.03 K/mm3 (0.00-0.23); BASOPHILS PERCENT AUTO 1 % (0-2); EOSINOPHILS ABSOLUTE AUTO 0.18 K/mm3 (0.00-0.68); EOSINOPHILS PERCENT AUTO 3 % (0-6); Hematocrit 23.7 % (33.0-51.0); Hemoglobin 7.3 g/dL (11.5-16.0); IMMATURE GRAN ABSOLUTE AUTO 0.05 K/mm3 (0.00-0.10); IMMATURE GRAN PERCENT AUTO 1 % (0-1); LYMPHOCYTES ABSOLUTE AUTO 0.52 K/mm3 (0.84-5.20); LYMPHOCYTES PERCENT AUTO 8 % (21-46); MONOCYTES ABSOLUTE AUTO 0.16 K/mm3 (0.16-1.47); MONOCYTES PERCENT AUTO 3 % (4-13); Mean Corpuscular HGB 25.4 pg (26.0-34.0); Mean Corpuscular HGB Conc 30.8 g/dL (31.5-36.5); Mean Corpuscular Volume 83 fL (80-100); Mean Platelet Volume 8.8 fL (9.1-12.4); NEUTROPHILS ABSOLUTE AUTO 5.38 K/mm3 (1.96-9.15); NEUTROPHILS PERCENT AUTO 85 % (41-73); Platelet Count 555 K/mm3 (150-400); RDW Coefficient Variation 17.2 % (11.7-14.2); RDW Standard Deviation 51.8 fL (35.1-46.3); Red Blood Cell Count 2.87 M/mm3 (3.80-5.20); White Blood Cell Count 6.32 K/mm3 (4.00-11.30)
[2022-08-28 05:11] LABS: Albumin, Blood 2.3 g/dL (3.4-5.0); Albumin/Globulin Ratio 0.7 (0.8-1.8); Bilirubin, Total 0.2 mg/dL (0.1-1.0); Bun/Creatinine Ratio 25.6 (12.0-20.0); Calcium, Blood 8.4 mg/dL (8.5-10.1); Creatinine, Blood 0.55 mg/dL (0.40-1.00); Globulin, Blood 3.3 g/dL (2.2-4.0); Potassium, Blood 4.1 mmol/L (3.5-5.5); Total Protein, Blood 5.6 g/dL (6.4-8.2)
--- NOTE | 2022-08-28 18:09 | NUR ---
SHIFT SUMMARY- VSS. PLEASANT. APPETITE GOOD. ON RA. POWER GLIDE PATENT, CHANGED CAPS. PAIN MANAGEMENT ON SCHEDULE, PT REPORTS LESS PAIN TODAY. PT AMBULATES EVRY FEW HRS FOR COMFORT. EDEMA REDUCED, +1 FROM PREVIOUS +2 THE DAY PRIOR. AFEBRILE. NO REPORTS OF SOB. WILL CONTINUE TO MONITOR. CALL LIGHT AT BED SIDE.
--- NOTE | 2022-08-29 04:24 | NUR ---
SHIFT MOSTLY UNREMARKABLE. CLIENT HAS BEEN TAKING DILAUDID+NARCO EVERY 4 HOURS EACH IN ORDER TO MITIGATE INTENSE PAIN. EVEN WITH PHARMACOLOGICAL THERAPY PAIN HAS NOT GONE BELOW 5/10. PAIN SLIGHTLY LESSENED WITH REPOSITIONING, AMBULATION. OTHERWISE CLIENT CONDITION IS UNCHANGED. CALL LIGHT LEFT WITHIN REACH.
--- NOTE | 2022-08-30 06:30 | NUR ---
WARP SPINNER SUMMARY NO ACUTE CHANGES. PT IS A/OX4; PLEASANT AND COOPERATIVE WITH CARE. PT IS C/O OF PERSISTANT ONGOING PAIN THAT PEAKS AT 8-9 WHEN MEDS WEAR OFF; THE LOWEST PAIN IS 6/10 WHEN MEDS ARE AT PEAK. MED PAIN P/EMAR AT REGULAR INTERVALS. PT IS INDEPENDENT IN ROOM AND CALLS APPROPRIATELY; CALL LIGHT IN REACH.
--- NOTE | 2022-08-30 16:45 | NUR ---
SHIFT SUMMARY; PATIENT VERY PAINFULL DURING DAY. AUTHORIZED AN INCREASE TO 1MG DILAUDID Q4 HOURS PRN BREAKTHROUGH PAIN. ORDER RECEIVED FOR CHEMO IN THE AM AND PRE MEDICATE WITH ZOFRAN AND DECADRON. PER PATIENT LAST TIME SHE HAD CHEMO SHE HAD DIARRHEA FOR 4 HOURS AFTER AND WAS CONSTANTLY IN THE BATHROOM.
--- NOTE | 2022-08-31 05:24 | NUR ---
SHIFT SUMMARY 61 YR F ADMITTED ON 08/18/22 FOR POST SURGICAL CARE AFTER ABDOMINAL SURGERY FOR PERFORATED GASTRIC ULCER. FULL CODE. PER DAY SHIFT NURSE, PT WAS IN A LOT OF PAIN ALL DAY. PT HAS SINCE BEEN RECEIVING NORCO Q4 ALTERNATING W/ DILAUDID Q4 THUS RECEIVING PAIN MEDS Q2. THIS HAS BEEN VERY AFFECTIVE IN CONTROLLING PT'S PAIN AND SHE STATES THAT SHE IS FEELING MUCH BETTER BECAUSE OF IT. COLACE WAS HELD FROM 2100 MEDS PT WILL HAVE CHEMO IN THE A.M. AND STATES THAT IT GIVES HER DAIRRHEA. PT HAS A POSITIVE ATTITUDE AND IS VERY PLEASANT AND COOPERATIVE WITH CARE.
[2022-08-31 05:56] LABS: BASOPHILS ABSOLUTE AUTO 0.06 K/mm3 (0.00-0.23); BASOPHILS PERCENT AUTO 1 % (0-2); EOSINOPHILS PERCENT AUTO 2 % (0-6); Hematocrit 22.8 % (33.0-51.0); Hemoglobin 7.2 g/dL (11.5-16.0); IMMATURE GRAN ABSOLUTE AUTO 0.08 K/mm3 (0.00-0.10); IMMATURE GRAN PERCENT AUTO 1 % (0-1); LYMPHOCYTES ABSOLUTE AUTO 0.59 K/mm3 (0.84-5.20); LYMPHOCYTES PERCENT AUTO 10 % (21-46); MONOCYTES ABSOLUTE AUTO 0.48 K/mm3 (0.16-1.47); MONOCYTES PERCENT AUTO 8 % (4-13); Mean Corpuscular HGB Conc 31.6 g/dL (31.5-36.5); Mean Corpuscular Volume 82 fL (80-100); Mean Platelet Volume 8.6 fL (9.1-12.4); NEUTROPHILS ABSOLUTE AUTO 4.44 K/mm3 (1.96-9.15); NEUTROPHILS PERCENT AUTO 77 % (41-73); Platelet Count 674 K/mm3 (150-400); RDW Coefficient Variation 17.6 % (11.7-14.2); RDW Standard Deviation 52.5 fL (35.1-46.3); Red Blood Cell Count 2.77 M/mm3 (3.80-5.20); White Blood Cell Count 5.75 K/mm3 (4.00-11.30)
[2022-08-31 06:23] LABS: Albumin, Blood 2.6 g/dL (3.4-5.0); Anion Gap 6 mmol/L (6-16); Blood Urea Nitrogen 15 mg/dL (8-24); Bun/Creatinine Ratio 24.2 (12.0-20.0); CO2, Blood 31 mmol/L (21-32); Calcium, Blood 8.9 mg/dL (8.5-10.1); Chloride, Blood 97 mmol/L (98-108); Creatinine, Blood 0.62 mg/dL (0.40-1.00); Glomerular Filtration Rate 103 (60-); Glucose, Blood 111 mg/dL (70-99); Phosphorus, Blood 3.5 mg/dL (2.5-4.9); Potassium, Blood 4.3 mmol/L (3.5-5.5); Sodium, Blood 134 mmol/L (136-145)
--- NOTE | 2022-08-31 17:08 | NUR ---
SHIFT SUMMARY; PATIENT RECEIVED CHEMO THIS AM AND HAS HAD MULTIPLE TRIPS TO THE BEDSIDE COMMODE. PATEINT COMPLAINS OF CRAMPING AND DIARRHEA. ORDER TO REMOVE HER SEEMA AND REPLACE WITH STERI STRIPS. WILL PASS ON TO NOC SHIFT NURSE DAY SHIFT HAS NOT BEEN ABLE. HER VITAL SIGNS ARE WNL AND PATIENT HAS PLEASANT AFFECT. SHE IS CURRENTLY EXPLORING OPTIONS OF SOMEWHERE SHE CAN PUT AN RV CLOSE TO THE CANCER CENTER WHERE SHE CAN RECEIVE TREATMENT AND NOT HAVE TO DRIVE VERY FAR. PASSED THIS INFORMATION ON TO THE MECHANICAL MAINTENANCE FOREMAN.
--- NOTE | 2022-08-31 19:48 | NUR ---
RECEIVED BEDSIDE REPORT FROM LOIDA YOST RN. PT ON 1L VIA NC, RESP EVEN. SALINE LOCKED. A/O. WILL CONTINUE TO PROVIDE CARE T/O SHIFT. CALL LT IN REACH.
--- NOTE | 2022-08-31 23:03 | NUR ---
REMOVED 27 SEEMA FROM MID ABDOMEN. IODINE USED BEFORE REMOVAL OF SEEMA, STERILE GLOVES ON, USING STERILE STAPLE REMOVER, CLEANSED SITE AFTER REMOVAL WITH IODINE, 9 STERI STRIPS PLACED, NO DRAINAGE NOTED, NO ODOR NOTED, SITE CLEAN AND DRY.
--- NOTE | 2022-09-01 | NUR ---
2 NORCO PAIN PILLS GIVEN FOR 6/10 ABDOMINAL SORENESS. NO OTHER NEEDS AT THIS TIME. CALL LT IN REACH.
--- NOTE | 2022-09-01 02:12 | NUR ---
MEDICATED PT FOR 6/10 ABDOMINAL PAIN WITH 1MG IV DILAUDID. PT STATES SHE'S GOING TO TRY AND SLEEP. NO OTHER NEEDS. CALL LT IN REACH.
--- NOTE | 2022-09-01 04:20 | NUR ---
PT RESTING QUIETLY. CALL LT IN REACH.
--- NOTE | 2022-09-01 04:58 | NUR ---
PT AWAKE. MEDICATED PT FOR 7/10 ABD PAIN WITH TWO NORCO. NO OTHER NEEDS. CALL LT IN REACH.
--- NOTE | 2022-09-01 04:59 | NUR ---
SHIFT SUMMARY: A/O. STATES NEEDS APPROPRIATELY. 1L VIA NC. APPETITE SLOWLY IMPROVING, ABLE TO EAT SOME DINNER WITHOUT NEEDING ZOFRAN FOR NAUSEA. NO DIARRHEA THIS SHIFT. MEDICATED T/O SHIFT WITH NORCO AND ALTERNATING WITH IV DILAUDID FOR BREAKTHROUGH PAIN. PT AMBULATED IN DE SOUZA X 1. REMOVED SEEMA FROM MID ABDOMEN AND PLACED STERI STRIPS. PT TOLERATED WELL. NO ACUTE CHANGES. WILL CONTINUE TO PROVIDE CARE UNTIL SHIFT REPORT.
--- NOTE | 2022-09-01 08:00 | NUR ---
pt laying in bed gets up indep in room a/ox3, pleasant and cooperative with care, follows commands well, reports pain of 7/10, she reports mostly abd pain, but is more than that, did not elaborate, lungs are dim t/o, resp even and unlabored, encouraged her to use I.S. currently on 2 liters 02 via n/c, no cough noted at this time, hrr, 2+ edema noted to b/l le, she reports it was up to her knees and is getting better, power glide to rosy site is clear and patent, btx4, reports she is passing gas, no stool last night, skin has midline incsion that the nell were removed last night and replaced with steri strips, incision looks good, no s/s of infection noted, tom, call light in reach.
--- NOTE | 2022-09-01 14:47 | NUR ---
Spiritual Care visit. Pt. is awake and welcomes my visit. Pt. is pleasant but displays evidence of occasional pain. Facilitate a life review and pt. focuses on her struggle with an employer. Listen empathetically with a calming presence. Re-establish rapport. Pt. displays evidence of feeling abandoned but ironically also displays evidence of hope and a positive outcome. Casper with Pt. Pt. verbalizes gratitude for the spiritual care visit.
--- NOTE | 2022-09-01 18:28 | NUR ---
pt doing well, does states she has a lot of pain, iv dilaudid was stopped today, she is doing ok with that, no further changes this shift. call light in reach.
--- NOTE | 2022-09-02 05:20 | NUR ---
CLIENT HAS BEEN TRACKING CLOCK TO ENSURE OPIOID PAIN MEDICATION ADMINISTRATION Q 4 HOURS. CLIENT HAD QUESTION ABOUT POSSIBLY RESUMING PREVIOUS TRAMADOL REGIMEN SHE REMEMBERS THAT MEDICATION MANAGING PAIN BETTER THAN CURRENT OPTION. ADVISED THAT THIS IS UNLIKELY BUT THAT i WILL PASS THE QUESTION ONTO DAY SHIFT NURSE TO ASK DOCTOR. SHIFT OTHERWISE UNREMARKABLE. CALL LIGHT LEFT WITHIN REACH.
[2022-09-02 05:39] LABS: Bun/Creatinine Ratio 24.3 (12.0-20.0); Creatinine, Blood 0.54 mg/dL (0.40-1.00)
[2022-09-02 08:36] LABS: BASOPHILS ABSOLUTE AUTO 0.05 K/mm3 (0.00-0.23); BASOPHILS PERCENT AUTO 1 % (0-2); EOSINOPHILS ABSOLUTE AUTO 0.13 K/mm3 (0.00-0.68); EOSINOPHILS PERCENT AUTO 3 % (0-6); Hematocrit 23.3 % (33.0-51.0); Hemoglobin 7.1 g/dL (11.5-16.0); IMMATURE GRAN ABSOLUTE AUTO 0.04 K/mm3 (0.00-0.10); IMMATURE GRAN PERCENT AUTO 1 % (0-1); LYMPHOCYTES ABSOLUTE AUTO 0.54 K/mm3 (0.84-5.20); LYMPHOCYTES PERCENT AUTO 12 % (21-46); MONOCYTES ABSOLUTE AUTO 0.25 K/mm3 (0.16-1.47); MONOCYTES PERCENT AUTO 6 % (4-13); Mean Corpuscular HGB 25.4 pg (26.0-34.0); Mean Corpuscular HGB Conc 30.5 g/dL (31.5-36.5); Mean Corpuscular Volume 83 fL (80-100); Mean Platelet Volume 8.8 fL (9.1-12.4); NEUTROPHILS ABSOLUTE AUTO 3.37 K/mm3 (1.96-9.15); NEUTROPHILS PERCENT AUTO 77 % (41-73); Platelet Count 702 K/mm3 (150-400); RDW Coefficient Variation 17.9 % (11.7-14.2); RDW Standard Deviation 54.1 fL (35.1-46.3); White Blood Cell Count 4.38 K/mm3 (4.00-11.30)
--- NOTE | 2022-09-02 18:11 | NUR ---
PT STATES FEELLING SOME BETTER. STATES IS MOTIVATED TO GO BACK TO CABIN IN [place]. APPRECIATES NEEDS TO GET STRONGER. GOAL IS TO GET BACK TO THE CABIN. PAIN MANAGED WITH AVAIL MEDS. ENCOURAGED HER TO BE UP AND ABOUT MUCH POSSIBLE. MUST BUILD STRENGTH. ALSO TO KEEP MOBILITY. NO NEW CONCERNS NOTED TODAY. P/T DID STATE SHE CAN BE INDEPENDANT IN ROOM. SUCH WILL NOT QUALIFY FOR SNF. BED IN LOW POSITION, CALL LITE IN REACH, CALLS APPROP
--- NOTE | 2022-09-03 06:36 | NUR ---
SHIFT SUMMARY - NOC PATIENT AOX4 PAINFUL DURNING SHIFT REQUIRING PRN PAIN MEDICATION. PT C/O PRESSURE AND CRAMPING IN ABDOMEN. ABDOMINAL DRESSING CDI. PT. C/O PAIN IN CHEST AND REPORTS TIGHTNESS. PT USES BSC SBA TO VOID. USES CALL LIGHT APPROPRIATELY.
--- NOTE | 2022-09-03 19:52 | NUR ---
SHIFT SUMMARY: PT STATES FEELING BETTER AND BREATHING BETTER. PT STATES HAVING SOME DISCOMFORT AND USES BATH BLANKET TO SPLINT WHEN SHE COUGHS. PT MEDICATED FOR PAIN PER EMAR PROTOCOL. PT RECEVIED ORAL CHEMO MEDICATION AND HAD INCREASED NAUSEA. PT RECEVIED IV ZOFRAN AND ON REASSESSMENT FELT BETTER. PT ATE WELL FOR ALL MEALS AND GOOD FLUID INTAKE. PT USED THE BSC THROUGHOUT SHIFT INDEPENDENTLY. PT IN BED WITH CALL LIGHT WITHIN REACH.
--- NOTE | 2022-09-04 09:09 | NUR ---
STEEL WHEEL ENGRAVER SUMMARY PATIENT IS A PLEASANT, FATIGUED AND ORIENTED LADY. ONLY ISSUE WAS THAT SHE COULD'VE USED MORE EFFECTIVE BREAKTHROUGH MEDICATION BETWEEN DOSES OF 15MG MS CONTIN. ONE HOUR AFTER DOSE AROUND 0500 IN AM, KYLE WAS PAINFUL AGAIN AFTER A SLOW, ASSISTED TRIP TO THE BATHROOM. PAIN OVERNIGHT WAS RIGHT CHEST AND BILATERAL UPPER QUADRANTS WHICH SHE DESCRIBED SORE AND FEELING BLOATED. SHE ONLY HAD ONE SMALL STOOL YESTERDAY, AND SHE WAS GETTING BACK INTO HER REGULAR CYCLE OF 2-3 MEDIUM SIZED BOWEL MOVEMENTS DAILY
--- NOTE | 2022-09-04 16:40 | NUR ---
SHIFT SUMMARY PT A&OX4 AND IN PLEASENT MOOD T/O SHIFT. MISSIONARY IN TO SEE PT T/O VISITING HOURS. PT STATES, " ZOFRAN BEFORE THE CHEMO WORKS WELL." DENIES N/V. PT VERBALIZED WORRY ABOUT SERVICES BEING PROVIDED TO HER HOME AFTER PLANNED DC TOMORROW DUE TO REMOTE LOCATION OF HOME. TOLERATING PO INTAKE. VSS. PAIN MEDICATED PER EMAR
--- NOTE | 2022-09-04 23:40 | NUR ---
2000 PT LYING IN BED, REPORTS ABD PAIN, GOT SCHEDULED OXYCONTIN, WILL EVAL FOR EFFECT. REPORTS SLIGHT NAUSEA BUT DENIES NEED FOR MEDS FOR IT AT THIS TIME. MIDLINE INCISION LOOKS GOOD. PT DECLINES SCD'S AT THIS TIME. NO OTHER APPARENT SIGNS OF DISTRESS CALL LIGHT IS IN REACH.
--- NOTE | 2022-09-05 03:43 | NUR ---
09/04/22 2330 PT REQUESTED AND RECIEVED PAIN MEDS, WILL EVAL FOR EFFECT. NO OTHER APPARENT SIGNS OF DISTRESS. CALL LIGHT IS IN REACH.
--- NOTE | 2022-09-05 03:44 | NUR ---
0200 PT REQUESTED AND RECIEVED A HEATING PAD, WILL EVAL FOR EFFECT. NO OTHER APPARENT SIGNS OF DISTRESS. CALL LIGHT IS IN REACH.
--- NOTE | 2022-09-05 03:46 | NUR ---
PT LYING IN BED, EYES CLOSED, APPEARS TO BE RESTING. BREATHING IS EVEN, UNLABORED. NO APPARENT SIGNS OF DISTRESS. CALL LIGHT IS IN REACH.
--- NOTE | 2022-09-05 03:47 | NUR ---
PT IS AAO X 4, ON 1L NC. REPORTS ABD PAIN, GOT SCHEDULED OXYCONITN AND NORCO PRN X 1. REPORTED SLIGHT NAUSEA BUT DID NOT WANT MEDS FOR IT. MIDLINE INCISION HAS SOME SCABBING AND STERI STRIPS.
--- NOTE | 2022-09-05 05:38 | NUR ---
PT REQUESTED AND RECIEVED PAIN MEDS, WILL EVAL FOR EFFECT. NO OTHER APPARENT SIGNS OF DISTRESS. CALL LIGHT IS IN REACH. NO OTHER CHANGES THIS SHIFT.
--- NOTE | 2022-09-05 18:18 | NUR ---
SHIFT SUMMARY PT WAS ADMITTED THIS AFTERNOON TO ROOM 359 VIA GURNEY FROM ED. PT HAS BEEN SLEEPY BUT AWAKENS EASILY. PT ORIENTED TO SELF, FAMILY, DATE BUT THINKS HE IS IN THE [facility] AT TIMES AND IS EASILY REDIRECTED. PT HAS A LARGE APPETITE AND WANTS TO EAT NONSTOP. THIS RN EDUCATED PT ON DIABETES AND NEEDING TO EAT MORE PROTEIN. PT COOPERATIVE WITH CARE. NO DISTRESS AT THIS TIME. CALL LIGHT IN REACH. BED ALARM ON FOR SAFETY. WILL MONITOR.
--- NOTE | 2022-09-05 18:22 | NUR ---
SHIFT SUMMARY PT HAS BEEN AWAKE ALL SHIFT. MEDICATED FOR PAIN PER EMAR. PT AMBULATED IN HALLS AND WORKED WITH PHYSICAL THERAPY. PT HAS HAD A DECENT APPETITE. HOME O2 WAS DONE THIS EVENING. PLANS FOR POSSIBLE DISCHARGE TOMORROW. NO ACUTE CHANGES. CALL LIGHT IN REACH. WILL CONTINUE TO MONITOR.
--- NOTE | 2022-09-05 22:00 | NUR ---
2124 PT LYING IN BED, REPORTS ABD PAIN OF 7/10, GOT SCHEDULED OXYCONTIN, USING HEATING PAD. WILL EVAL FOR EFFECT. REPORTS SLIGHT NAUSEA BUT DOES NOT WANT MEDS FOR IT AT THIS TIME. MIDLINE INCISION WITH SCABBING AND STERI STRIPS. NO OTHER APPARENT SIGNS OF DISTRESS. CALL LIGHT IS IN REACH.
--- NOTE | 2022-09-05 23:21 | NUR ---
6985 PT REQUESTED AND RECIEVED PAIN MEDS, WILL EVAL FOR EFFECT. NO OTHER APPARENT SIGNS OF DISTRESS. PT DENIES NEED FOR ANYTHING AT THIS TIME. CALL LIGHT IS IN REACH.
--- NOTE | 2022-09-06 00:24 | NUR ---
ASSUMED CARE OF PT, THIS RN AGREES TO PREVIOUS RN'S SHIFT ASSESSMENT FINDINGS.
--- NOTE | 2022-09-06 04:57 | NUR ---
SUMMARY: PT A/OX4, CALLS APPROPRIATELY TO SPECIFY NEEDS AND IS PLEASANT AND COOPERATIVE W/CARE. SHE T/F'S SELF TO BSC BUT IS UP W/SBA AND FWW OTHERWISE. SHE HAD BEDBATH TONIGHT PER REQUEST W/NEW LINENS AND GOWN APPLIED. MIDLINE INCISION IS SCABBED AND HEALING W/STERI STRIPS INTACT. PT CONT'S TO REPORT ABDO PAIN AND RECIEVED SCHEDULED OXYCONTIN AND PRN NORCO FOR TOLERABLE RELIEF. NO ACUTE CHANGES, VSS/AFEBRILE. POSSIBLE D/C TODAY. WCTM AND REPORT TO DAY RN.
--- NOTE | 2022-09-06 11:28 | NUR ---
Spiritual Care Visit. Pt. is sitting in a chair and welcomes my visit. Pt. is still displaying evidence of discomfort from her surgery. Pt. is pleasant and verbalizes her expectation to be discharged later today. Listen empatheticially and normalize the Pt. discharge experience. Re-establish rapport. Pt. verbalizes that she has a niece who will be visiting her later in the week. Pt. displays evidence of being respected and supported during her hospital stay by all of the staff. Prayed with Pt. Pt. verbalized gratitude for the spiritual care she has received over the many days of her hospitalization.
[2022-09-06] MEDS ORDERED: DOCU100 PO (12:30)
[2022-09-06] MEDS ORDERED: ANASTROZOLE1 M7 PO (12:30)
[2022-09-06] MEDS ORDERED: FURO40 PO (12:31)
[2022-09-06] MEDS ORDERED: Norco 5-325 Ta1 EACH PO (12:32)
[2022-09-06] MEDS ORDERED: OXYCONTIN15 MG PO (12:33)
[2022-09-06] MEDS ORDERED: IBRANCE125 MG PO (12:33)
[2022-09-06] MEDS ORDERED: PANT20 PO (12:36)
[2022-09-06] MEDS ORDERED: K-Dur20 MEQ PO (12:37)
--- NOTE | 2022-09-06 16:34 | NUR ---
DISCHARGE SUMMARY PATIENT IS ALERT AND ORIENTED. PATIENT HAS HAD NO ACUTE EVENTS THIS SHIFT. VITAL SIGNS REVIEWED. PATIENT IS BEING DISCHARGE HOME WITH HOME HEALTH. PATIENT UNDERSTOOD DISCHARGE INSTRUCTIONS AND WISHED TO MAKE HER OWN APPOINTMENTS. PATIENTS FRIEND IS TRANSPORTING PATIENT HOME.
== END 2022-09-06 16:31 | disposition home health service (06) | DRG 853 ==
LOC: ER 09:14 → ICUW 13:55 → SURS 13:55 → MEDS 13:55 → ICUW 17:15 → SURS 08-19 17:56 → MEDS 08-23 21:48
PROVIDERS: Emergency Medicine; Internal Medicine; Nurse Practitioner Acute Care; Pathology Anatomic Pathology & Clinical Pathology; Surgery; ADMIT Internal Medicine
PROC: 0DBU0ZX Excision of Omentum, Open Approach, Diagnostic (ICD-10-PCS; 2022-08-18)
PROC: 0DU607Z Supplement Stomach with Autologous Tissue Substitute, Open Approach (ICD-10-PCS; 2022-08-18)
PROC: 0FB10ZX Excision of Right Lobe Liver, Open Approach, Diagnostic (ICD-10-PCS; 2022-08-18)
PROC: 3E03305 Introduction of Other Antineoplastic into Peripheral Vein, Percutaneous Approach (ICD-10-PCS; 2022-08-18)
PROC: 0W993ZX Drainage of Right Pleural Cavity, Percutaneous Approach, Diagnostic (ICD-10-PCS; 2022-08-18)
PROC: 3E03329 Introduction of Other Anti-infective into Peripheral Vein, Percutaneous Approach (ICD-10-PCS; principal; 2022-08-18 14:45)
DX: A41.9 Sepsis, unspecified organism (principal); J18.9 Pneumonia, unspecified organism; J96.01 Acute respiratory failure with hypoxia; K25.5 Chronic or unspecified gastric ulcer with perforation; K63.1 Perforation of intestine (nontraumatic); C77.2 Secondary and unspecified malignant neoplasm of intra-abdominal lymph nodes; C78.00 Secondary malignant neoplasm of unspecified lung; C78.7 Secondary malignant neoplasm of liver and intrahepatic bile duct; J91.0 Malignant pleural effusion; Z17.0 Estrogen receptor positive status [ER+]; E87.6 Hypokalemia; E83.39 Other disorders of phosphorus metabolism; G89.3 Neoplasm related pain (acute) (chronic); E87.70 Fluid overload, unspecified; C50.919 Malignant neoplasm of unspecified site of unspecified female breast; D63.0 Anemia in neoplastic disease; R65.20 Severe sepsis without septic shock; Z90.10 Acquired absence of unspecified breast and nipple; Z98.890 Other specified postprocedural states; Z79.891 Long term (current) use of opiate analgesic; Z79.899 Other long term (current) drug therapy
CPT/HCPCS: 36415; 71045; 71046; 74177; 74240; 80048; 80053; 80069; 81001; 83605; 83690; 83735; 84100; 84132; 84145; 85025; 86850; 86900; 86901; 87040; 87086; 88305; 88307; 88341; 88342; 88360; 90686; 93005; 93010; 94760; 94761; 96374; 96375; 96376; 97110; 97116; 97162; 97530; 99285-25; A9270; C1751; C9113; J1100; J1170; J1650; J1885; J1940; J2370; J2405; J2543; J2704; J2795; J3010; J3480; J7030; J7050; J7060; J7120; J9267; Q9967

== ENCOUNTER 2023-01-14 17:37 | Inpatient (IN) | payer OTHER ==
[~2023-01-14] VITALS: Ht 162.6 cm; Wt 43.4 kg
[~2023-01-14 17:37] MED LIST changes: +ANASTROZOLE1 M7 PO; +DOCU100 PO; +FURO40 PO; +IBRANCE125 MG PO; +K-Dur20 MEQ PO; +Norco 5-325 Ta1 EACH PO; +OXYCONTIN15 MG PO; +PANT20 PO
[2023-01-14 18:39] LABS: BASOPHILS ABSOLUTE AUTO 0.01 K/mm3 (0.00-0.23); BASOPHILS PERCENT AUTO 1 % (0-2); EOSINOPHILS ABSOLUTE AUTO 0.01 K/mm3 (0.00-0.68); EOSINOPHILS PERCENT AUTO 1 % (0-6); Hematocrit 23.6 % (33.0-51.0); Hemoglobin 7.6 g/dL (11.5-16.0); IMMATURE GRAN ABSOLUTE AUTO 0.01 K/mm3 (0.00-0.10); IMMATURE GRAN PERCENT AUTO 1 % (0-1); LYMPHOCYTES ABSOLUTE AUTO 0.47 K/mm3 (0.84-5.20); LYMPHOCYTES PERCENT AUTO 32 % (21-46); MONOCYTES ABSOLUTE AUTO 0.13 K/mm3 (0.16-1.47); MONOCYTES PERCENT AUTO 9 % (4-13); Mean Corpuscular HGB 29.9 pg (26.0-34.0); Mean Corpuscular HGB Conc 32.2 g/dL (31.5-36.5); Mean Corpuscular Volume 93 fL (80-100); Mean Platelet Volume 9.1 fL (9.1-12.4); NEUTROPHILS ABSOLUTE AUTO 0.82 K/mm3 (1.96-9.15); NEUTROPHILS PERCENT AUTO 57 % (41-73); Platelet Count 149 K/mm3 (150-400); RDW Coefficient Variation 22.7 % (11.7-14.2); RDW Standard Deviation 76.9 fL (35.1-46.3); Red Blood Cell Count 2.54 M/mm3 (3.80-5.20); White Blood Cell Count 1.45 K/mm3 (4.00-11.30)
[2023-01-14 18:59] LABS: Albumin, Blood 2.6 g/dL (3.4-5.0); Albumin/Globulin Ratio 0.7 (0.8-1.8); Bilirubin, Total 0.4 mg/dL (0.1-1.0); Creatinine, Blood 0.92 mg/dL (0.40-1.00); Globulin, Blood 3.6 g/dL (2.2-4.0); Total Protein, Blood 6.2 g/dL (6.4-8.2)
[2023-01-14 22:37] LABS: Source, Urine Straight Cath
[2023-01-14 22:39] LABS: Bilirubin, Urine Neg (Neg); Blood, Urine Neg (Neg); Glucose Qualitative, Urine Neg (Neg); Ketones, Urine Neg (Neg); Leukocyte Esterase, Urine Neg (Neg); Nitrite, Urine Neg (Neg); Protein, Urine 1+ (Neg); Urobilinogen, Urine NORM (Normal)
[2023-01-14 22:44] LABS: Appearance, Urine Clear (Clear); Color, Urine Yellow (P-Yellow)
[2023-01-15 05:02] LABS: BASOPHILS ABSOLUTE AUTO 0.01 K/mm3 (0.00-0.23); BASOPHILS PERCENT AUTO 1 % (0-2); EOSINOPHILS PERCENT AUTO 0 % (0-6); Hematocrit 23.5 % (33.0-51.0); Hemoglobin 7.4 g/dL (11.5-16.0); Mean Corpuscular HGB 29.8 pg (26.0-34.0); Mean Corpuscular HGB Conc 31.5 g/dL (31.5-36.5); Mean Corpuscular Volume 95 fL (80-100); Mean Platelet Volume 8.7 fL (9.1-12.4); Platelet Count 127 K/mm3 (150-400); RDW Standard Deviation 79.8 fL (35.1-46.3); Red Blood Cell Count 2.48 M/mm3 (3.80-5.20); White Blood Cell Count 1.14 K/mm3 (4.00-11.30)
[2023-01-15 05:04] LABS: IMMATURE GRAN ABSOLUTE AUTO 0.01 K/mm3 (0.00-0.10); IMMATURE GRAN PERCENT AUTO 1 % (0-1); LYMPHOCYTES ABSOLUTE AUTO 0.33 K/mm3 (0.84-5.20); LYMPHOCYTES PERCENT AUTO 29 % (21-46); MONOCYTES PERCENT AUTO 9 % (4-13); NEUTROPHILS ABSOLUTE AUTO 0.69 K/mm3 (1.96-9.15); NEUTROPHILS PERCENT AUTO 61 % (41-73)
[2023-01-15 05:34] LABS: Bun/Creatinine Ratio 35.2 (12.0-20.0); Calcium, Blood 8.4 mg/dL (8.5-10.1); Creatinine, Blood 0.91 mg/dL (0.40-1.00); Potassium, Blood 3.8 mmol/L (3.5-5.5)
--- NOTE | 2023-01-15 21:33 | NUR ---
ASSUMED PT CARE FROM [facility] ON . PT IS A&OX3 WITH MOMENTS OF FORGETFULNESS. COOPERATIVE, ABLE TO MAKE NEEDS KNOWN AND FOLLOW DIRECTIONS. COMPLAINTS OF SEVERE PAIN 9/10 IN CHEST AND ABDOMEN. NO TIME FOR PT TO RECIEVE PRN IV PAIN MEDICATION YET. REVIEWED PT'S HOME MEDICATIONS WITH PT. REPORTS TAKING LONG ACTING MORPHINE AT HOME. ABLE TO PROVIDE PERSCRIPTION BOTTLE FROM PURSE. PT STATES SHE HAS NOT TAKEN ANY WHILE IN THE HOSPITAL. DENIES TAKING ANY OF HER HOME MEDICATIONS WHILE IN THE HOSPITAL. MORPHINE PLACED IN LOCK BOX IN ROOM WITH PT'S KNOWLEDGE FOR PT SAFETY. ALSO COMPLAINTS OF SOB. O2 SATS 98% ON [address] FOR PT COMFORT. REPIRATIONS APPEAR LABORED WHEN PT IS ATTEMPTING TO COUGH. PRODUCING LARGE AMOUNTS OF WHITE/YELLOW SPUTUM. O2 SATS OCCASIONAL DROP TO 88% WITH PROLONGED COUGHING FIT. SPOKE WITH DR. MARTINEZ ABOUT ORDERING HOME PAIN MEDICATIONS AND BREATHING TREATMENTS FOR PT COMFORT. ORDERS RECEIVED. PT REPORTS PAIN AND SOB HAVE MUCH IMPROVED AFTER RECIEVING MEDICATIONS. PT IS ABLE TO GET UP TO C WITH STAND BY ASSIST. MOVEMENT IS SLOW AND LABORED BUT ABLE TO MAINTAIN O2 SATS > 92%. HR SR/ST. INCREASED INTO 120'S WHEN COUGHING BUT DECREASES TO LOW 100'S WHEN AT REST. NO COMPLAINTS OF CHEST PRESSURE.
[2023-01-15] MEDS ORDERED: MORP15ER PO (23:52)
[2023-01-16 03:34] LABS: BASOPHILS ABSOLUTE AUTO 0.04 K/mm3 (0.00-0.23); BASOPHILS PERCENT AUTO 3 % (0-2); EOSINOPHILS PERCENT AUTO 0 % (0-6); Hematocrit 23.7 % (33.0-51.0); Hemoglobin 7.5 g/dL (11.5-16.0); IMMATURE GRAN ABSOLUTE AUTO 0.01 K/mm3 (0.00-0.10); IMMATURE GRAN PERCENT AUTO 1 % (0-1); LYMPHOCYTES PERCENT AUTO 32 % (21-46); MONOCYTES ABSOLUTE AUTO 0.17 K/mm3 (0.16-1.47); MONOCYTES PERCENT AUTO 13 % (4-13); Mean Corpuscular HGB Conc 31.6 g/dL (31.5-36.5); Mean Corpuscular Volume 95 fL (80-100); Mean Platelet Volume 8.9 fL (9.1-12.4); NEUTROPHILS ABSOLUTE AUTO 0.65 K/mm3 (1.96-9.15); NEUTROPHILS PERCENT AUTO 51 % (41-73); Platelet Count 117 K/mm3 (150-400); RDW Coefficient Variation 22.6 % (11.7-14.2); RDW Standard Deviation 78.1 fL (35.1-46.3); White Blood Cell Count 1.27 K/mm3 (4.00-11.30)
[2023-01-16 04:03] LABS: Albumin, Blood 2.2 g/dL (3.4-5.0); Albumin/Globulin Ratio 0.7 (0.8-1.8); Bilirubin, Total 0.4 mg/dL (0.1-1.0); Bun/Creatinine Ratio 32.6 (12.0-20.0); Calcium, Blood 8.7 mg/dL (8.5-10.1); Creatinine, Blood 0.67 mg/dL (0.40-1.00); Globulin, Blood 3.3 g/dL (2.2-4.0); Potassium, Blood 3.7 mmol/L (3.5-5.5); Total Protein, Blood 5.5 g/dL (6.4-8.2)
--- NOTE | 2023-01-16 06:23 | NUR ---
PT HAS REPORTED IMPROVEMENT OF SOB AFTER RECEIVING NEBULIZER TREATMENTS FROM RT, SEE EMAR. UP MULTIPLE TIMES TO BSC TO VOID CLEAR, YELLOW URINE. BECOMES SOB PRIMARILY AFTER GETTING OUT OF BED. MEDICATED FOR PAIN WITH PRN MEDICATION X 1, SEE EMAR. REPOSITIONED OFF OF BACK, FLOATED ON PILLOWS, PT REPORTS THIS BEING "MUCH MORE COMFORTALE. WILL ENCOURAGE PT TO CONTINUE MOVING SELF IN BED FREQUENTLY.
--- NOTE | 2023-01-16 17:07 | NUR ---
shift summary pt a&ox4. sp02>90% on 3l nc. pt c/o of sob, neb tx given x1 this shift. Telemetry shows nsr/sinus tach, hr 90's-110's. bp soft. pt c/o of generalized pain, medicated per emar x2. Pt up to bsc to void. able to minimally work with OT and PT for evals today. MD Garcia in room this afternoon. Pt distressed after conversation. Pt states, "i'm scared." Pt states, "I need to have difficult conversations with my family". Palliative care informed, asked RN if appropriate to visit. Pt requested privacy and door to be closed this afternoon while pt called dad. Pt's friend currently in room talking with pt. Call light in reach.
--- NOTE | 2023-01-16 18:27 | NUR ---
ASSUMED CARE OF PATIENT AT 1730 FROM JENNY HILTON RN. PATIENT ALERT AND ORIENTED. VISITING WITH FRIENDS IN ROOM. SPOKE WITH PATIENT ANS SHE STATED SHE DID NOT HAVE ANY NEEDS AT THIS TIME AND CONTINUED TO EAT HER DINNER. WILL CONTINUE TO MONITOR.
--- NOTE | 2023-01-16 18:32 | NUR ---
pt alert some trouble tracking conversation and forgetfull. Family in to help her with a plan of care. Doctor Joni just come in to reivew her poor prognosis. We reviewed some of the details of her prognosis and conditions. We completed a polst. she was able to [id number] with the help of her family. She chose dnr status limited treatment. Will transition to hospice if she declines any more. polst given to family copy on chart and sent to medical records.
--- NOTE | 2023-01-16 20:43 | NUR ---
ASSUMED PT CARE FORM EVEN RN ON DAYSHIFT. PT A&OX4. ABLE TO MAKE NEEDS KNOW, COOPERATIVE WITH CARE AND PLEASENT. UP TO BSC. COMPLETE BED BATH AND BED LINEN CHANGE BY HEAVEN PANTOJA CNA. PT REPORTING PAIN 7-8/10 THIS EVENING AFTER RETURNING TO BED, MEDICATED WITH SCHEDULE PAIN PILL. FLOATING PT OFF OF COCCYX WITH PILLOWS. DRESSING ON COCCYX CHANGED, SMALL ROUND SKINLESS AREA NOTED ON COCCYX, APPROXIMATELY PEA SIZE IN DIAMETER. SKIN AROUND WOUND IS PINK AND BLANCHABLE. O2 SATS 100 ON 2 LPM, RESPIRATIONS EVEN AND UNLABORED. HR IS SR/ST 90-100'S. DENIES ANY SOB OR CHEST PAIN AT THIS TIME. DENIES FURTHER NEEDS AT THIS TIME. CALL LIGHT IN REACH.
--- NOTE | 2023-01-17 05:02 | NUR ---
SHIFT SUMMARY: PT UP TO BSC SEVERAL TIMES THROUGHOUT SHIFT. PT REPORTS "I'VE SLEPT QUITE A BIT" DURING SHIFT. PAIN WELL CONTROLED WITH SCHEDULED PAIN MEDICATIONS. NEBULIZER TREATMENTS GIVEN FOR COMFORT, SEE EMAR. NO ACUTE CHANGES NOTED DURING THIS SHIFT.
--- NOTE | 2023-01-17 13:06 | NUR ---
Spiritual Care Visit. Pt. is awake in bed and welcomes my visit. Pt. is known to the hat lacer because of previous hospitalization. Pt. is unsettled by the recent setback in her chemotherapy that brought her back to the hospital. Listen with empathy and a calming presence. Though displaying evidence of overall weakness and exhaustion, Pt. is both pleasant and affirming of the care she has received. Pt. verbalized that her pain is significant and that it has hindered her ability to spleep. Prayed with Pt. Pt. verbalzied graittude for the care she has received as well as the spiritual care visit.
--- NOTE | 2023-01-17 17:15 | NUR ---
Spoke with Primary RN Ca and discussed case. Pt resting in bed upon arrival. Pt reports significant dyspnea. Pt has 2 friends at bedside. Pt is known to this principal technical writer from previous hospital stay. Inquired with Pt if having discussion with friends present ok. Pt reports discussion in front of friends is ok. Brief review of plan of care. Initiated conversation regarding goals of care. Pt request that friends leave. After friends leave engaged in therapeutic discussion regarding goals of care. Discussed Dr Garcia's recommendations regarding hospice. Discussed considering comfort care. Pt appears to struggle with processing information. Discussed code status. Educated on life sustaining treatments including risks and consequences of CPR. Pt appears to struggle with information including understanding. 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 Attempted to educate on difference with Pt appearing to struggle with understanding. Ended visit to allow Pt to rest. Spoke with Dr Figueroa and discussed case. Pt appears to have low level of understanding and poor insight. Placed order for ST to perform cognitive evaluation per V/O from Dr Figueroa. Palliative Care will remain available.
--- NOTE | 2023-01-17 18:24 | NUR ---
PT MEDICATED FOR PAIN, WHICH WAS TOLERATED WELL, PT APEPARS TO BE SLEEPING AT THIS TIME. VSS T/O THE SHIFT. PT WITH ANXIETY T/O THE DAY, DOES BECOME AGITATED EASILY AT TIMES, BUT OTHERWISE IS PLEASANT AND COOPERATIVE WITH CARE. PT WITH MANY BELONGINGS IN BED THAT INHIBIT PT FROM HAVNG FULL ROM IN BED, BUT PT REFUSES TO ALLOW BELONGINGS TO BE REMOVED FROM BED. PT IS INDEPENDANT TO BSC T/O THE DAY WITH THE EXCEPTION OF WHEN FAMILY IS IN THE ROOM. DR HSU HAS PROVIDED EXTENSIVE EDUCATION TODAY ABOUT PROGNOSIS, PALLIATIVE CARE TO ROOM FOR ASSESSMENT, PT STS SHE HAS NOT BEEN ALLOWED ENOUGH TIME TO THINK ABOUT HOSPICE, AT THIS TIME REMAINS FULL CODE. PT HAS BEEN MADE MEDICAL STATUS WITH TELEMETRY MONITORING, REPORT HAS BEEN CALLED TO [facility] ON MEDICAL FLOOR, PT WILL BE TRANSFERED TO MEDICAL IN A FEW MOMENTS.
[2023-01-17] MEDS ORDERED: Acetaminophen325 M1 PO (23:56)
[2023-01-17] MEDS ORDERED: Ventolin/Prove6.7 GM INH (23:59)
--- NOTE | 2023-01-18 12:29 | NUR ---
NOTE PT HAND WRITING HER LAST WILL AND TESTAMNET. SHE STATED THAT AN PULP GRINDER AND BLENDER IS COMING AND AFTER THAT SHE WILL WANT MARYLOU A DNR. CONTINUE POC.
--- NOTE | 2023-01-18 14:20 | NUR ---
LAST WILL AND TESTAMENT PT FRIEND, TANA, HAS ARRANGED A ZOOM CALL WITH AN MCAT TUTOR FOR THIS AFTERNOON. CONTINUE POC.
--- NOTE | 2023-01-18 16:52 | NUR ---
EVENING NOTE PT RESTING. SHE HAS BEEN WRITINGHER LAST WILL AND TESTAMENT. SHE TEXTED A COPY OF IT TO HER FRIEND TANA. TANA HAD ARRANGED FOR AN PUBLIC RELATIONS ACCOUNT EXECUTIVE ZOOM CALL TODAY. PT CONTINUES TO C/O OF SOB. VOICE QUALITY IS CLEAR AND STRONG. OCCASIONAL COUGH OF YELLOW, THICK SPUTUM. SHE USES THE YONKER TO REMOVED SPUTUM. POOR APPETITE. SHE EXPRESSED THAT HER PAIN IS OK. HER SOB IS MORE CONCERNING TO HER. UP AD SOURAV TO BSC. VOIDING SMALL AMOUNTS OF YELLOW URINE. CONTINUE POC.
--- NOTE | 2023-01-19 06:47 | NUR ---
PT SITTING UP IN BED DURING BEDSIDE ROUNDS- PT TEARFUL DURING BEDSIDE ROUNDS- PT REPORTED BEING SCARED OF DYING AND UNCLEAR OF THE NEXT STEP- PT SPOKE OF HOPING SHE GETS HER WILL DONE SO SHE CHANGE TO DNR - PT TOOK SCHEDULED MEDS WITHOUT PROBLEMS- PT SLEPT T/O NIGHT- PT AWAKES WHEN ENTERING THE ROOM- BED LOW POSITION, CALL LIGHT WITHIN REACH
--- NOTE | 2023-01-19 16:21 | NUR ---
Spiritual Care Visit. Pt. is awake in bed and welcomes my visit. Pt's. friend is present. Rapport is quickly re-established and Pt. verbalized the significance of her spiritual care. Pt. shared information about the relief of having her legal affairs in order. Listen with empathy and a calming presence. Matters of nghia and belief are considered and a reading from the [employer] is read. Pt. displayed evidence of great rafita and connection to the reading. Prayed with Pt. Pt. verbalized gratitude for the spiritual care visit.
--- NOTE | 2023-01-19 19:00 | NUR ---
SHIFT SUMMARY PT A&O X 4. VSS. PAIN MANAGED BY MEDS PER EMAR. IS INDEPENDENT IN THE ROOM FOR RESTROOM USE. APPETITE IS MARGINAL. PT FRAIL, WEAK & CACHECTIC. IS PALE, MAC[place]O APPEARING. IS PLEASANT & COOPERATIVE WITH ALL CARE. IS ON 2 L'S N/C. BECOMES SOB WITH SWALLOWING PILLS. TAKES 1 AT A TIME AND NEEDS TIME TO RECOVER BEFORE SWALLOWING NEXT ONE. PALLIATIVE CARE & EXPLOITATION ANALYST WORKING TOWARDS DC DISPOSITION.
--- NOTE | 2023-01-20 05:28 | NUR ---
SHIFT SUMMARY PT HAD FAMILY MEMBER IN ROOM DURING BEDSIDE REPORT- PT SITTING UP IN BED- PT MEDICATED ONCE FOR FENTANYL PER SHIFT AND SCHEDULED MEDICATIONS- PT SAT UP TO SIDE OF BED MULTIPLE TIMES TO HELP WITH BREATHING- PT SPOKE WITH THIS RN ABOUT WANTING TO CHANGE HER CODE STATUS TO NO CPR AND INTUBATION ONLY- PT STATED THAT SHE WILL DISCUSS WITH THIS AM-WILL PASS ON IN REPORT AND WROTE ON BOARD IN ROOM FOR TO DISCUSS WITH PT
--- NOTE | 2023-01-20 18:07 | NUR ---
SHIFT SUMMARY NO CLINICAL CHANGES TODAY. PT REMAINS ON 2 L'S NC. REMAINS WEAK, FRAIL & CACHECTIC. APPETITE IS MARGINAL. HAS HAD MANY VISITORS TODAY. MANY MEETINGS WITH DIMENSION MILL WORKER AND OTHERS REGARDING HER DC DISPOSITION. PT DISCUSSED HER CODE STATUS WITH MD TODAY BUT WITH NO CHANGES MADE TO HER STATUS. SHE REMAINS A FULL CODE. MEDICATED ONCE TODAY FOR BREAKTHROUGH PAIN WITH FENTYNL WITH GOOD RELIEF PER EMAR. CALL LIGHT IS WITHIN REACH.
--- NOTE | 2023-01-21 04:03 | NUR ---
SUMMARY: NO ACUTE EVENTS OVERNIGHT. PATIENT AOX4. AMBULATED TO BEDSIDE COMMODE INDEPENDENTLY. PATIENT ON 2L O2 VIA NC. PAIN MEDS GIVEN PER EMAR. PATIENT BP SOFT AND HR ELEVATED. PATIENT HAD ABOUT 5-6 VISITORS IN ROOM AT SHIFT CHANGE VISITING WITH HER. PATIENT VERBALIZED TO NURSE THAT SHE DOESN'T THINK SHE WANTS CPR BUT IS GOING TO SPEAK WITH THE DOCTOR ABOUT IT TODAY. PATIENT AWAKE THROUGHOUT MOST OF NIGHT.
--- NOTE | 2023-01-21 18:23 | NUR ---
Multiple visits today with patient and her family and friends. Pt showing great stress at decision making. She is able to clearly review her needs on her home and her nghia. She want to be DNR want hospice and john. attemtpted polst she became to distraut. Presented her with the loving choices book to read she was intersted and comforted by written materials. Her friend and poa are from her judaism. Encouraged her to get the alexander to visit. Pt want to be buried on her land. Some discussion of funneral. Will continue care and hopefully transtion to john and hospice. Discussion was had with kiki that if she has decine in ablity to partipate or becomes more unresponsive will transtion [place] comfort care. Expained that level of care she agressed that will be best. Pt struggling with holding her head up she is very hyper vigilant and struggling to relax. Brought her quilt and neck pillow. encourage family to help position her. She asked family to stay the night she is fearfull. staed to family that she is hypervigilant at this point and bagaining. Will continue to help her process.
--- NOTE | 2023-01-21 18:41 | NUR ---
SHIFT SUMMARY: PT A&O X3/4, DROWSEY AT TIMES, AND HAS FLUCTUATIONS IN MOOD. PT HAS CHRONIC PAIN RELATED TO BREAST CANCER WITH METS. PT MEDICATED WITH SCHEDULED MS CONTIN PO BID AND FENTAYL 25MCG IV Q4HRS FOR PAIN MANAGEMENT. PT ASSESSED BY DR. LOUISE AND DISCUSSED CODE STATUS AND EXPLAINED OPTIONS OF CODE STATUS. PT STATED TO HAVE POA PRESENT FOR ANY CHANGES IN CARE OR CODE STATUS. PT POA TANA CASEY CONATCTED AND SCHEDULED AT MEETING WITH FAMILY AND PALLATIVE CARE TEAM. PT CHANGED CODE STATUS POST MEETING, PLAN TO DISCHARGE TO [facility] AND CHANGE PLAN OF CARE TO HOSPICE. PT MEAL INTAKE AND FLUID INTAKE LESS THAN 25%. PT ENCOURAGED TO BE REPOSTIONED AND DECLINED TO BE MOVED. PT EDUCATED ON REPOSTIONING FOR COMFORT AND SKIN BREAK DOWN. PT CONTIUNES TO DECLINE CARE. PT HAS FAMILY PRESENT THROUGHOUT SHIFT TO ADVOCATE, SUPPORT AND CARE FOR PT EMOTIONALLY. PT IN BED WITH CALL LIGHT WITHIN REACH.
--- NOTE | 2023-01-22 05:18 | NUR ---
SUMMARY: PATIENT BP LOW OVERNIGHT. SYSTOLIC REMAINED IN THE 80S. PATIENT FAMILY MEMBER STAYED IN ROOM OVERNIGHT. AROUND MIDNIGHT THE PATIENT CALLED NURSE INTO ROOM STATING SHE NOW WANTS TO BE MADE COMFORT CARE. NOTIFIED MD FENDER MECHANIC HE STATED THAT WE SHOULD DEFER TO THE ROUNDING PROVIDERS IN THE MORNING TO CHANGE PATIENT GOALS OF CARE. NOTIFIED PATIENT OF MD RESPONSE PATIENT AGREEABLE TO SPEAK WITH PROVIDERS IN THE MORNING. CALL LIGHT IN REACH.
--- NOTE | 2023-01-22 13:17 | NUR ---
pt has many visitors from her alevism. She has transitioned to comfort care. pt is having increased anexiety. Sh had a good conversation with the hospitalist. Will complete a polst and continue to monitor her symptoms and needs.
--- NOTE | 2023-01-22 18:40 | NUR ---
SHIFT SUMMARY- PT'S PAIN CONTROLLED WITH COMFORT MEDS. AOOX4. CALLS APPROPRIATELY.
--- NOTE | 2023-01-23 17:58 | NUR ---
SHIFT SUMMARY- PAIN AND ANXIETY WELL CONTROLLED WITH COMFORT MEDS. BED ALARM NOW SET ON PT. RN FOUND PT OOB ALONE AT 1800-WHEN RN IMMEDIATELY WENT TO CHECK ON PT, PT TRIPPED AND FELL BACKWARDS SLIGHTLY. RN WAS BEHIND PT AND ABLE TO CATCH HER. RN INFORMED PT SHE MUST ASK FOR HELP FROM NOW ON BY CALLING. BED ALARM SET. FAMILY ALSO INFORMED. PT IS VERY ADAMENT ABOUT BEING INDEPENDENT AND REFUSES HELP OFTEN. RN EDUCATED PT AND FAMILY AND SAFETY IN THE HOSPITAL.
--- NOTE | 2023-01-24 11:38 | NUR ---
"Spiritual Care Visit | Palliative Care Consult Pt. is awake in bed and welcomes my visit. Pt. has a friend present. Pt. is comfort care but displays evidence of occassional strength to engage in conversation. Pt. verbalizes her encouragement by the spiritual care visit. Pt. verbalizes concerns about the fear of . Consider matters of her nghia and belief. Affirm the impact of the Pts. life of those she influenced over the years. Prayed with Pt. Pt. and friend verbalize gratitude for the spiritual care visit. Ask nurse to notify this exercise rider if the Pt. begins to transition."
--- NOTE | 2023-01-25 15:12 | NUR ---
Spiritual Care Visit. Pt. is on comfort care, but immediately greets this press operator meat when I enter the room. Pt. is somnolent but pleasant. Pts. POA is prersent at bedside. Life review took place, and as the conversation proceeded the Pt. was able to peacefully rest. Matters of nghia and belief are discussed as was common relationships in the community. POA displayed evidence of committed caregiving for the Pt. Pt. remained restful. Pts. POA verbalized gratitude for the spiritual care visit.
--- NOTE | 2023-01-25 18:12 | NUR ---
Spiritual Care follow up. Pt. is on comfort care and mostly resting, but responds to the nurses voice. Pt. displays evidence of becoming weaker and withdrawing. Family is preseant, and rapport is established. Pt. was able verbalize gratitude for the spiritual care visit.
--- NOTE | 2023-01-25 18:14 | NUR ---
PT SOME WEAKER TODAY. DID GET BED BATH TODAY. FAMILY AND FRIENDS IN TO SEE TODAY. DID GET ROXANOL TODAY. 5 MG. PT STATES TOOK PN AWAY. NO NEW CONCERNS NOTED. GOT TO VISIT WITH HER SOME TODAY. NO NEW CONCERNS NOTED . BED IN LOW POSITION, CALL LITE IN REACH, CALLS APRP
--- NOTE | 2023-01-26 03:57 | NUR ---
SHIFT MOSTLY UNREMARKABLE. PT IS AOX4, INTERMITTENTLY ABLE TO SLEEP. PT IS VERY APOLOGETIC AND VOICES BEING VERY UNCOMFORTABLE IF NOT IN EXPLICIT PAIN. ADMINISTERED 2100 MORPHINE AND 1 PRN DOSE OF ROXANOL. PT REQUESTED AN ADDITIONAL PRN DOSE OF ROXANOL BUT REFUSED ONCE IT WAS PRESENTED. SISTER IS PRESENT AND NOTED THAT SHE HAS BEEN VERY INDECISIVE AND ALTERNATES BETWEEN WANTING MEDICATOIN AND NOT. SISTER NOTED THAT PT HAS BEEN MUCH MORE AGREEABLE WITH CARE THIS SHIFT THAN IN SHIFTS PRIOR. PT HAS NOT HAD ANY FOOD THIS SHIFT. 1 PERSON ASSIST TO BEDSIDE COMMODE, VERY WEAK. PER DAY SHIFT REPORT PLAN IS FOR PATIENT TO GO TO [facility] UPON DISCHARGE. PT IS AWARE OF THIS PLAN. PT HAS BEEN VERY PLEASANT THROUGHOUT SHIFT. SISTER CALLS APPROPRIATELY ON PT BEHALF. CALL LIGHT LEFT WITHIN REACH.
--- NOTE | 2023-01-26 14:20 | NUR ---
Comfort Care Visit Pt sitting on edge of bed slump over. Optometry Doctor Sherman and Pt's friend at bedside. Pt reports being tired of taking medication and sitting up in bed is assisting with discomfort. Friend also reports Pt refused pain medication in order to be alert during her assessment. Continued supportive visit. Encouraged Pt her long acting pain medication should still allow her to interact with her surroundings. Pt does not respond. Ended visit to allow Optometry Doctor to continue his visit. Spoke with Pt's Primary RN Shoshana and discussed case. Palliative Care will remain available
--- NOTE | 2023-01-26 14:32 | NUR ---
Spiritual Care Visit. Pt. is sitting on the side of her bed and welcomes my visit. The perception would be that the Pt. is experiencing discomfort, but the Pt. verbalizes her body needed to change positions from laying in the bed. POA is present at bedside. Words of encouragement are shared as well as inspirational readings. Pt. displayed evidence of being encouraged. Engaged in conversation with POA. Palliative Care made a visit. Prayed with Pt. Pt. and POA verbalized gratitude in the spiritual care visit. Will remain available to Pt.
--- NOTE | 2023-01-26 16:33 | NUR ---
SHIFT SUMMARY PT A&OX3-4, FRIEND AT BEDSIDE T/O SHIFT. 1X TO BSC. PT C/O PAIN THEN DENIES MEDS WHEN OFFERED. PT APPOLOGETIC AND STATES EMBARRASMENT W/ ASSIST TO BSC. PT RESTING COMFORTABLE IN BED T/O MOST OF SHIFT. EATING MIN AMOUNTS.
--- NOTE | 2023-01-27 04:14 | NUR ---
SHIFT SUMMARY NOC PT A/O X 3-4. PT ON COMFORT CARE WITH SISTER SITTING BEDSIDE THROUGH THE NIGHT. PT HAD ONE C/O OF PAIN AND WAS MEDICATED PER EMAR, BUT REFUSED PAIN OTHERWISE. MOST OF PT RX SWITCHED TO IV DUE TO SWALLOWING ISSUES. PT SLEPT THROUGH MOST OF SHIFT RESTING COMFORTABLY. PT HAD MINIMAL PO INTAKE. PT IS CURRENTLY RESTING WITH BED IN LOWEST POSITION, AND CALL LIGHT WITHIN REACH.
--- NOTE | 2023-01-27 11:32 | NUR ---
Comfort Care Visit Pt resting in bed with her eyes closed and is non responsive. Respirations 6/min with periods of apnea. Pt appears comfortable with no S/S of distress at this time. Pt's sister and Pt's friend at bedside. Offered supportive conversation and educated on actively dying stage. Family is hopeful Pt's daughter arrives in time before Pt passes. Spoke with Primary RN Moraima and discussed case. Palliative Care will remain available.
--- NOTE | 2023-01-27 12:37 | NUR ---
"Spiritual Care | EOL comfort care visit Pt. is on comfort care and is not responsive. Pt. displays evidence of slow shallow breathing. Pts. family and POA is present. Soft music is playing and Prayers for the Pt. are made. While the Pt. is still lingering, the family has chosen [facility] as their home. Family verbalized gratitude for the spiritual care visit."
--- NOTE | 2023-01-27 16:48 | NUR ---
SHIFT SUMMARY: PT UNRESPONSIVE TO VERBAL STIMULATION, RESPONDS TO REPOSTIONING AND ORAL CARE. PT NOT TAKING IN FLUIDS OR FOOD, NO URINE OUTPUT DURING THE SHIFT. PT MEDICATED SEVERAL TIME WITH MORPHINE AND ATIVAN DURING THE SHIFT. PT ON 3L NC, WITH GUEVARA STOKE BREATHING, AND GURGLING IN THE THROAT. PT RECEVED ATROPINE DROPS, SUCTIONING AND SCOPOLAMINE PATCH IN PLACE. PT RECEVIED MOUTH CARE, REPOSTIONING AND MEDICATION DURING THE SHIFT FOR COMFORT CARE. PT FAMILY AT BEDSIDE THROUGHOUT THE SHIFT. PT IN BED CALM WITH NO S/S OF DISCOMFORT AT THIS TIME.
--- NOTE | 2023-01-27 23:55 | NUR ---
PT PASSED AT 22:30 ON 01/27 WITH FAMILY PRESENT.
--- NOTE | 2023-01-28 07:28 | NUR ---
I called family at 07:15 on 01/28/23. I spoke with Holly about pt's blanket that was left behind. Holly stated it was left intentionally, they hoped we might be able to donate it or wash it and use it. We also spoke about the pt's medications being held in the pharmacy. The family has no intention of picking up the medications and agree the pharmacy should dispose of them.
== END 2023-01-27 22:30 | DRG 189 ==
LOC: ER 17:37 → PCU 23:34 → MEDS 01-17 19:01
PROVIDERS: Emergency Medicine; Internal Medicine; Physician Assistant; ADMIT Hospitalist
DX: J96.01 Acute respiratory failure with hypoxia (principal); D61.810 Antineoplastic chemotherapy induced pancytopenia; C78.01 Secondary malignant neoplasm of right lung; E87.1 Hypo-osmolality and hyponatremia; E44.0 Moderate protein-calorie malnutrition; C77.2 Secondary and unspecified malignant neoplasm of intra-abdominal lymph nodes; J91.0 Malignant pleural effusion; Z68.1 Body mass index [BMI] 19.9 or less, adult; R64 Cachexia; C78.7 Secondary malignant neoplasm of liver and intrahepatic bile duct; C78.02 Secondary malignant neoplasm of left lung; I31.31 Malignant pericardial effusion in diseases classified elsewhere; Z66 Do not resuscitate; Z51.5 Encounter for palliative care; T45.1X5A Adverse effect of antineoplastic and immunosuppressive drugs, initial encounter; E88.09 Other disorders of plasma-protein metabolism, not elsewhere classified; D63.0 Anemia in neoplastic disease; C50.919 Malignant neoplasm of unspecified site of unspecified female breast; I95.9 Hypotension, unspecified; D72.819 Decreased white blood cell count, unspecified; Z98.890 Other specified postprocedural states; Z90.12 Acquired absence of left breast and nipple; Z87.891 Personal history of nicotine dependence; Z79.899 Other long term (current) drug therapy; Z79.01 Long term (current) use of anticoagulants; Z79.891 Long term (current) use of opiate analgesic; Z86.711 Personal history of pulmonary embolism; Z79.811 Long term (current) use of aromatase inhibitors; Z17.0 Estrogen receptor positive status [ER+]
CPT/HCPCS: 36415; 71046; 71260; 74177; 80048; 80053; 83690; 83880; 84484; 85025; 93005; 93010; 93306; 94640; 94760; 94762; 96125-GN; 96361; 96374-59; 96375-59; 97110; 97162; 97166; 97530; 97535; 99285-25; A9270; J1650; J2060; J2405; J3010; J7030; P9612; Q9967